=== PATIENT | female | born 1940 | race Caucasian/White ===

== ENCOUNTER 2023-11-18 15:48 | Outpatient (CLI) | payer MEDICARE, BC, SELFPAY | END 2023-11-18 15:49 | disposition home or self-care (01) | PROVIDERS: PCP Family Medicine; Visit Provider Family Medicine | DX: E78.5 Hyperlipidemia, unspecified (principal); E03.9 Hypothyroidism, unspecified; I10 Essential (primary) hypertension; R73.03 Prediabetes; M85.80 Other specified disorders of bone density and structure, unspecified site; I25.10 Atherosclerotic heart disease of native coronary artery without angina pectoris | CPT/HCPCS: 80053; 80061; 82306; 84443 ==

== ENCOUNTER 2024-06-05 13:59 | Outpatient (CLI) | payer MEDICARE, BC, SELFPAY ==
--- NOTE | 2024-06-05 14:00 | CRLHL7_ITS ---
For Patients: As a result of the Century Cures Act, medical imaging exams and procedure reports are released immediately into your electronic medical record. You may view this report before your referring provider. If you have questions, please contact your health care provider. INDICATION: bilateral screening mammogram, asymptomatic 84 y/o female COMPARISON: None TECHNIQUE: CC and MLO views were obtained. These mammographic images have been obtained using full-field digital technique. These mammographic images were interpreted with the benefit of computer aided detection and tomosynthesis. BREAST COMPOSITION: The breasts are heterogeneously dense, which may obscure small masses. FINDINGS: No suspicious findings. ASSESSMENT: BI-RADS 1 Negative RECOMMENDATION: Annual screening mammogram. A lay language report of this examination will be provided to the patient. Dictated by: Ney Randle MD @ 06/19/2024 13:08:49 (Electronically Signed)
== END 2024-06-05 14:00 | disposition home or self-care (01) ==
LOC: MAMMO 14:00
PROVIDERS: PCP Family Medicine; Visit Provider Obstetrics & Gynecology
DX: Z12.31 Encounter for screening mammogram for malignant neoplasm of breast (principal)
CPT/HCPCS: 77063; 77067

== ENCOUNTER 2024-08-18 15:52 | Emergency (ER) | payer MEDICARE, BC, SELFPAY ==
--- OUTSIDE RECORDS SUMMARY | 2021-04-14 08:25 | XMS_ITS | Continuity of Care Document ---
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 Phone Azeem Johnson MD Unavailable [...] VISIT CATARACT SURG W/IOL, 1 STAGE Oct [facility] Oct- OPHTHALMIC BIOMETRY Oct POSTOP FOLLOW-UP VISIT CATARACT SURG W/IOL, 1 STAGE Oct [facility] Oct- OFFICE/OUTPATIENT VISIT, EST Oct OPHTHALMIC BIOMETRY Oct No Charge EYE EXAM & TREATMENT REFRACTION TOBACCO NON-USER VISUAL FIELD EXAMINATION(S) EYE EXAM & TREATMENT REFRACTION PRESCRIPTION OF CONTACT LENS Tobacco-use domestic violence counselor 3-10 min EYE EXAM & TREATMENT [...] Diagnoses Date Provider Providers Copied on Encounter [facility], [address], [place], [place], [address], tel:[phone] [facility] follow-up (chief complaint) Secondary noninfectious iridocyclitis, left eye 2 Alex Azeem. [address], [place], [place], [address] . tel:[phone] [facility], [address], [facility] [place], [address], [place] tel:[phone] [facility] IOV (chief complaint) Presence of intraocular lens Francisco-2 2 Alex Gann. [address], [place], [place], [address] . tel: [phone] [facility] [place], [address] [place], [place], [address], [place] tel:[phone] [facility] post-op (chief complaint) Presence of intraocular lens Dec-0 1 Alex Gann. [address], [place], [place], [address] . tel: [phone] [facility] [place], [address] [place], [place], [address], [place] tel:[phone] [facility] post-op (chief complaint) Presence of intraocular lens Nov-0 1 Alex Gann. [address], [place], [place], [address] . tel: [phone] [facility] [place], [address] [place], [place], [address], [place] tel:[phone] [facility] post-op (chief complaint) Presence of intraocular lens Oct-2 1 Alex Gann. [address], [place], [place], [address] . tel: [phone] [facility] [place], [address] [place], [place], [address], [place] tel:[phone] [facility] No Information Oct-2 1 Alex Gann. [address], [place], [place], [address] . tel: [phone] [facility], [address] [place], [place], [address], [place] tel:[phone] [facility] post-op (chief complaint) Presence of intraocular lens Oct-1 1 Alex Gann. [address], [place], [place], [address] . tel: [phone] [facility], [address] [facility], [place], [place], [address], [place] tel:[phone] [facility] post-op (chief complaint) Presence of intraocular lens Oct-1 1 Alex Gann. [address], [place], [place], [address] . tel: [phone] [facility], [address] [place], [place], [address], [place] tel:[phone] [facility] No Information Oct-1 1 Alex Gann. [address], [place], [place], [address] . tel: [phone] OFFICE/OUTPAT IENT VISIT, EST [facility], [address] [place], [place], [address], [place] tel:[phone] [facility] medical eye exam (chief complaint)P re-op (chief complaint) Combined forms of age-related cataract, bilateral Oct-1 1 Alex Gann. [address], [place], [place], [address] . tel: [phone] [facility], [address] [place], [place], [address], [place] tel:[phone] [facility] medical eye exam (chief complaint) Combined forms of age-related cataract, bilateral Sep-2 0 Alex Gann. [address], [place], [place], [address] . tel: [phone] [facility], [address], [place], [place], [address], [place] tel:[phone] [facility] No Information Sep-2 -202 0 Agustina Brewster. [address], [place], [place], [address] . tel: [phone] [facility] [place], [address] [facility], [place], [place], [address], [place] [phone] [facility] No Information 3201 9 Alex Gann. [address], [place], [place], [address] . tel: [phone] [facility], [address] [place], [address], [place] tel:[phone] [facility] medical eye exam (chief complaint) Combined forms of age-related cataract, bilateral 201 9 Alex Gann. [address], [place], [place], [address] . tel: [phone] [facility] [place], [address] [place], [place], [address], [place] tel:-[phone] [facility] medical eye exam (chief complaint) Combined forms of age-related cataract, bilateral Apr- 2-201 8 Alex Gann. [address], [place], [place], [address] . tel: [phone] [facility] [place], [address] [place], [place], [address], [place] [phone] [facility] medical eye exam (chief complaint) Combined forms of age-related cataract, bilateral Apr-2 9-201 7 Alex Gann. [address], [place], [place], [address] . tel: [phone] [facility], [address] [place], [place], [address], [place] tel:[phone] [facility] No Information 201 5 Alex Gann. [address], [place], [place], [address] . tel: [phone] [facility], [address], [facility], [place], [place], [address], [place] tel:[phone] [facility] No Information 2 Alex Gann. [address] [facility], [place], [place], [address] . tel: [phone] Family History Family Member Type Diagnosis Age At Onset Mother Problem (finding) hypertension Father Problem (finding) glaucoma Payers Payer name Insurance type Covered green party ID Authoriza tion(s) Medicare MB [id number] [facility] [id number] Social History Type Description Quantity Date Captured [...] to Combined forms of age-related cataract, bilateral - Return in 1 year w francia Johnson M.D. for Complete Exam with Contacts. Related to Combined Cataract Combined Cataract OU - Discussed diagnosis in detail with patient. Surgery not indicated, will monitor. New glasses Rx was given today. Patient given new CLs today. Related to Combined Cataract Senile nuclear scler osis OU doing well - Surgery not indicated, will monitor. New glasses Rx was given today. Patient given new CLs today. Related to Senile nuclear sclerosis - Return in 1 year w francia Johnson M.D. for Complete Exam. Related to Senile nuclear sclerosis Assessments Type Assessment Date assessment Secondary noninfectious iridocyc litis, left eye impression Secondary noninfecti ous iridocyclitis, left eye: H20.042. post op iritis quiet Patient Care Teams Name Effective Dates (start - stop) Status Members No Information
--- OUTSIDE RECORDS SUMMARY | 2021-04-14 08:25 | XMS_ITS | Continuity of Care Document ---
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 Name Role Phone Azeem Johnson MD Unavailable [...] VISIT CATARACT SURG W/IOL, 1 STAGE Oct [facility] Oct- OPHTHALMIC BIOMETRY Oct POSTOP FOLLOW-UP VISIT CATARACT SURG W/IOL, 1 STAGE Oct [facility] Oct- OFFICE/OUTPATIENT VISIT, EST Oct OPHTHALMIC BIOMETRY Oct No Charge EYE EXAM & TREATMENT REFRACTION TOBACCO NON-USER VISUAL FIELD EXAMINATION(S) EYE EXAM & TREATMENT REFRACTION PRESCRIPTION OF CONTACT LENS 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 [address], [place], [place], [id number] . tel:[phone] [facility] MIRELA, [address], [facility] [place], [id number], [place] tel:[phone] [facility] IOV (chief complaint) Presence of intraocular lens Francisco-2 2 Alex Gann. [address], [place], [place], [id number] . tel: [phone] [facility] [place], [address] [place], [place], [address], [place] tel:[phone] [facility] post-op (chief complaint) Presence of intraocular lens Dec-0 1 Alex Gann. [address], [place], [place], [address] . tel: [phone] [facility] [place], [address] [place], [place], [id number], [place] tel:[phone] [facility] post-op (chief complaint) Presence of intraocular lens Nov-0 1 Alex Gann. [address], [place], [place], [id number] . tel: [phone] [facility] [place], [address] [place], [place], [address], [place] tel:[phone] [facility] post-op (chief complaint) Presence of intraocular lens Oct-2 1 Alex Gann. [address], [place], [place], [address] . tel: [phone] [facility], [address] [place], [address], [place] tel:[phone] [facility] No Information Oct-2 1 Alex Gann. [address], [place], [place], [address] . tel: [phone] [facility], [address] [place], [place], [id number], [place] tel:[phone] [facility] post-op (chief complaint) Presence of intraocular lens Oct-1 1 Alex Gann. [address], [place], [place], [address] . tel: [phone] [facility], [address] [facility], [place], [place], [id number], [place] tel:[phone] [facility] post-op (chief complaint) Presence of intraocular lens Oct-1 1 Alex Gann. [address], [place], [place], [address] . tel: [phone] [facility], [address] [place], [place], [address], [place] tel:[phone] [facility] No Information Oct-1 1 Alex Gann. [address], [place], [place], [address] . tel: [phone] OFFICE/OUTPAT IENT VISIT, EST [facility], [address] [place], [place], [id number], [place] tel:[phone] [facility] medical eye exam (chief complaint)P re-op (chief complaint) Combined forms of age-related cataract, bilateral Oct-1 1 Alex Gann. [address], [place], [place], [address] . tel: [phone] [facility], [address] [place], [place], [address], [place] tel:[phone] [facility] medical eye exam (chief complaint) Combined forms of age-related cataract, bilateral Sep-2 0 Alex Gann. [address], [place], [place], [address] . tel: [phone] [facility], [address], [place], [place], [address], [place] tel:[phone] [facility] No Information Sep-2 -202 0 Agustina Brewster. [address], [place], [place], [address] . tel: [phone] [facility] [place], [address] [facility], [place], [place], [id number], [place] [phone] [facility] No Information 3201 [address] Alex Gann. [address], [place], [place], [address] . tel: [phone] [facility], [address] [place], [address], [place] tel:[phone] [facility] medical eye exam (chief complaint) Combined forms of age-related cataract, bilateral 201 9 Alex Gann. [address], [place], [place], [address] . tel: [phone] [facility] [place], [address] [place], [address], [place] [phone] [facility] medical eye exam (chief complaint) Combined forms of age-related cataract, bilateral Apr- 2-201 8 Alex Gann. [address], [place], [place], [address] . tel: [phone] [facility] [place], [address] [place], [address], [place] [phone] [facility] medical eye exam (chief complaint) Combined forms of age-related cataract, bilateral Apr-2 9-201 7 Alex Gann. [address], [place], [place], [address] . tel: [phone] [facility], [address] [place], [address], [place] tel:[phone] [facility] No Information 201 5 Alex Gann. [address], [place], [place], [address] . tel: [phone] [facility], [address], [facility], [place], [place], [address], [place] tel:[phone] [facility] No Information 2 Alex Gann. [address] [facility], [place], [place], [address] . tel: [phone] Family History Family Member Type Diagnosis Age At Onset Mother Problem (finding) hypertension Father Problem (finding) glaucoma Payers Payer name Insurance type Covered constitution party ID Authoriza tion(s) Medicare MB [id number] [facility] [id number] Social History Type Description Quantity Date Captured [...]
--- OUTSIDE RECORDS SUMMARY | 2023-06-17 09:15 | XMS_ITS ---
Author Organization [facility] Address [address] [place] [address] Care Team Providers Care Shed Workers Supervisor Name Role Phone ISATUMILAGROSRAYNA Primary Care Provider ROSE Felder Unavailable [phone] Allergies No Known Allergies Medications Medication SIG (Take, Route, Frequency, Duration) Notes Start Date End Date Status BIOTIN 5000 mcg 1 tab(s) orally once a day Active ALBUTEROL (EQV-PROVENTIL HFA) 90 mcg/inh 2 puff(s) inhaled every 6 hours Active SYNTHROID 25 mcg (0.025 mg) 1 tab(s) orally once a day for 90 days Active AMLODIPINE 2.5 mg 2 orally once a day Active MINIVELLE 0.0375 mg/24 hours twice weekly 1 PATCH transdermally 2 times a week Active HYDROCHLOROTHIAZIDE-LOSART AN 25 mg-100 mg 1 tab(s) orally once a day Active CELEBREX 200 mg 1 cap(s) orally once a day Active FLUOXETINE 40 mg 1 cap(s) orally once a day Active METOPROLOL SUCCINATE ER 50 mg 1 tab(s) orally once a day A ctive ATORVASTATIN 40 mg 1 tab(s) orally once a day Active BREO ELLIPTA 200 mcg-25 mcg/inh 1 puff(s) inhaled once a day Active VASCEPA 1 g 2 cap(s) orally once a day Active VITAMIN B12 1000 mcg 1 tab(s) orally once a day Active ASPIRIN 81 mg 1 tab(s) orally once a day Active Social History Tobacco Use: Social History Observation Description Date Details (start date - stop date) Never Smoker NA - NA Alcohol Screen: Question Answer Notes Did you have a drink containig alcohol in the year: No Tobacco Use: Question Answer Notes Smoking Status: nonsmoker Vital Signs Blood pressure systolic 98 mm Hg 06/17/19 24 Blood pressure diastolic 60 mm Hg 024 Height 63.5 in 06/17/2023 Weight 113 lbs 06/17/2023 BMI 19.7 kg/m2 06/17/2023 Encounters Encounter Location Date Provider Diagnosis [facility] [place] [place] [address] [place] [address] 06/17/2023 ROSE POWERS Other specified hypothyroidism E03.8 Assessments Encounter Date Diagnosis (ICD Code) Assessment Notes Treat ment Notes Treatment Clinical Notes 06/17/2023 Other specified hypothyroidism (ICD-10 - E03.8) 06/17/2023 Other need tepezza as soon as possible 08/2022 OK to stop Tepezza to reduce risk of worsening hearing loss - has endocrine clearance. Advised to get Dr. Sales's clearance first. Restart Synthroid 25 mcg qd. Send to [facility]. Labs to be done here a week before. Case d/w Dr. Powers /11/2022 Continue Synthroid 25 mcg qd. Labs to be done here a week before. Case d/w Dr. Powers /03/2023 Continue Synthroid 25 mcg qd. Labs for TSH today only. Defer to Dr. Sales and GASTON regarding diplopia and hearing loss. Case d/w Dr. Powers /05/2023 Continue same dose. Agree with seeing Manager Database . Labs to be done at PCP, which she sees every 3 months. Order thyroid U/S to be done at [facility]. Case d/w Dr. Powers Plan Of Treatment Medication Medication Name Sig Start Date Stop Date Notes BIOTIN 5000 mcg 1 tab(s) orally once a day ALBUTEROL (EQV-PROVENTIL HFA ) 90 mcg/inh 2 puff(s) inhaled every 6 hours SYNTHROID 25 mcg (0.025 mg) 1 tab(s) ora lly once a day for 90 days AMLODIPINE 2.5 mg 2 orally once a day MINIVELLE 0.0375 mg/24 hours twice weekly 1 PATCH transdermally 2 times a week HYDROCHLOROTHIAZIDE-LOSARTAN 25 mg-100 mg 1 tab(s) orally once a day CELEBREX 200 mg 1 cap(s) orally once a day FLUOXETINE 40 mg 1 cap(s) orally once a day METOPROLOL SUCCINATE ER 50 mg 1 tab(s) orally once a day ATORVASTATIN 40 mg 1 tab(s) orally once a day BREO ELLIPTA 200 mcg-25 mcg/inh 1 puff(s) inhaled once a day VASCEPA 1 g 2 cap(s) orally once a day VITAMIN B12 1000 mcg 1 tab(s) orally once a day Treatment Notes Assessment Notes Other need tepezza as soon as possible /08/2022 OK to stop Tepezza to reduce risk of worsening hearing loss - has endocrine clearance. Advised to get Dr. Sales's clearance first. Restart Synthroid 25 mcg qd. Send to [facility]. Labs to be done here a week before. Case d/w Dr. Powers /11/2022 Continue Synthroid 25 mcg qd. Labs to be done here a week before. Case d/w Dr. Powers /03/2023 Continue Synthroid 25 mcg qd. Labs for TSH today only. Defer to Dr. Sales and GASTON regarding diplopia and hearing loss. Case d/w Dr. Powers /05/2023 Continue same dose. Agree with seeing Manager Database. Labs to be done at PCP, which she sees every 3 months. Order thyroid U/S to be done at [facility]. Case d/w Dr. Powers Pending Test Test Name Order Date TSH, 3RD GENERATION 06/17/2023 Next Appt Details Follow Up: 3 months, Reason: Progress Notes * Vania PEREZOB:1940 (83 yo F)Acc No.[id number]:06/17/2023 Patient: Litzy BAUM Provider: Jb Powers M.D. :1940 A ge:83 Y S ex:Female Date:06/17/2023 Address:[address] [place] [address] Pcp:RAYNA KRISHNA Subjective: * Chief Complaints: * * HPI: S ocial History: Last eye exam: P oints: 0 , I nterpretation: N egative. H yperthyroidism: The patient was diagnosed d x hypothyroid age 58 , was on synthroid, . T he symptoms consistent with hyperthyroidism are p cp had to decrease dose several times in the last year , , dr krishna, actualliy had to d c , thyroid meds altogether, tsh 0.16 on levothy 25, then 2.26 in january off meds,, pt had proptosis, of left eye and double vision , saw dr morton tsh 0.76 tsi 429 08/2022 Pt has had [address] Morton said exopthalamos has improved. Pt concerned about hearing loss worsening if continues. 11/2022 Reviewed labs. She is still having hearing loss, but has yet to see ENT as she is currently working with a vascular surgeon for PVD. 03/2023 6 mos post Tepezza treatment, will have an upcoming appt with ENT. Hearing has not improved. 05/2023 Reviewed labs. She has still not recovered from hearing. Might see an open hearth worker as she cannot afford hearing aids.. W ith respect to fertility the patient?pt post men. T he last TSH was performed 01/2022 2 .26 11/2022 TSH 4.2, Free T4 1.2, Free T3 3.0 03/2023 TSH 1.1 05/2023 TSH 1.83, 5.7%. T he treatment regimen S ynthroid 25 mcg qdBRAND only. S binh effects of the medications include n one. C ompliance with the medical regimen has been g ood. * ROS: G eneral: Loss of appetite n o. W eight loss y es. W eight gain n o. F atigue y es. I nsomnia y es. E ndocrinology: Sensitive to cold temperature n o. S ensitive to hot temperature y es. i ncrease appettite y es. S weats y es. * Medical History: A shtma, Hld, Hypothryoid, Htn. * Surgical History: b ilat tka , lami , rt shluder , bladder prolacpse , t a . * Hospitalization/Major Diagno stic Procedure: D enies Past Hospitalization. * Family History: F ather: , parkinsons. M other: , obs. M aternal Grand Father: unknown, diagnosed with Diabetes. 1 son(s) , 1 daughter(s) - healthy. . dtr cad. * Social History: T obacco Use S moking Status: n onsmoker. A lcohol Screen D id you have a drink containig alcohol in the past year: N o. * Medications: T aking Vitamin B12 1000 mcg tablet 1 tab(s) orally once a day , Taking Breo Ellipta 200 mcg-25 mcg/inh powder 1 puff(s) inhaled once a day , Taking atorvastatin 40 mg tablet 1 tab(s) orally once a day , Taking Metoprolol Succinate ER 50 mg tablet, extended release 1 tab(s) orally once a day , Taking FLUoxetine 40 mg capsule 1 cap(s) orally once a day , Taking CeleBREX 200 mg capsule 1 cap(s) orally once a day , Taking hydrochlorothiazide-losartan 25 mg-100 mg tablet 1 tab(s) orally once a day , Taking Synthroid 25 mcg (0.025 mg) tablet 1 tab(s) orally once a day , Taking aspirin 81 mg delayed release tablet 1 tab(s) orally once a day , Taking Albuterol (Eqv-Proventil HFA) 90 mcg/inh aerosol 2 puff(s) inhaled every 6 hours , Taking biotin 5000 mcg tablet, disintegrating 1 tab(s) orally once a day , Taking Minivelle 0.0375 mg/24 hours twice weekly film, extended release 1 PATCH transdermally 2 times a week , Taking amLODIPine 2.5 mg tablet 2 orally once a day , Taking Vascepa 1 g capsule 2 cap(s) orally once a day , Medication List reviewed and reconciled with the patient * Allergies: N .K.D.A. Objective: * Vitals: W t: 113, Ht: 63.5, BMI:19.7, BP:98/60, HR: 72. * Examination: G eneral examination: e yes, 100 rt 20 mm left 25 mm. * Physical Examination: G eneral: General appearence w ell nourished, pleasant, NAD. N tian: Neck s upple. T hyroid n ot enlarged. H eart: Rhythm r egular. H eart sounds n ormal. C hest: Breath sounds n ormal. Assessment: * Assessment: 1. O ther specified hypothyroidism - E03.8 (Primary) long h o hypothyroidism, now with euthyroid graves dz, with exopthalmos os, with sx, left eye proptitic with some erythrema and diplopia /08/2022 exopthalmos improved, hearing loss SE from tepezza, elevated TSH /11/2022 TFTs improved, continuous hearing loss /03/2023 6 mos post tepezza treatment (stopped two infusions prior to completion), continuous hearing loss, diplopia without prism glasses, free t4 normal /05/2023 tsh ok, continuous hearing loss from tepezza treatment. Plan: * Treatment: 2. O thers Continue Vitamin B12 tablet, 1000 mcg, 1 tab(s), orally, once a day; C ontinue Breo Ellipta powder, 200 mcg-25 mcg/inh, 1 puff(s), inhaled, once a day; C ontinue atorvastatin tablet, 40 mg, 1 tab(s), orally, once a day; C ontinue Metoprolol Succinate ER tablet, extended release, 50 mg, 1 tab(s), orally, once a day; C ontinue FLUoxetine capsule, 40 mg, 1 cap(s), orally, once a day; Continue CeleBREX capsule, 200 mg, 1 cap(s), orally, once a day; C ontinue hydrochlorothiazide-losartan tablet, 25 mg-100 mg, 1 tab(s), orally, once a day; S tart Synthroid tablet, 25 mcg (0.025 mg), 1 tab(s), orally, once a day, 90 days, 90 Tablet, Refills 3; C ontinue Albuterol (Eqv-Proventil HFA) aerosol, 90 mcg/inh, 2 puff(s), inhaled, every 6 hours; C ontinue biotin tablet, disintegrating, 5000 mcg, 1 tab(s), orally, once a day; C ontinue Minivelle film, extended release, 0.0375 mg/24 hours twice weekly, 1 PATCH, transdermally, 2 times a week; C ontinue amLODIPine tablet, 2.5 mg, 2, orally, once a day; C ontinue Vascepa capsule, 1 g, 2 cap(s), orally, once a day. Notes: need tepezza as soon as possible 08/2022 OK to stop Tepezza to reduce risk of worsening hearing loss - has endocrine clearance. Advised to get Dr. Sales's clearance first. Restart Synthroid 25 mcg qd. Send to [facility]. Labs to be done here a week before. Case d/w Dr. Powers /11/2022 Continue Synthroid 25 mcg qd. Labs to be done here a week before. Case d/w Dr. Powers /03/2023 Continue Synthroid 25 mcg qd. Labs for TSH today only. Defer to Dr. Sales and GASTON regarding diplopia and hearing loss. Case d/w Dr. Powers /05/2023 Continue same dose. Agree with seeing Manager Database. Labs to be done at PCP, which she sees every 3 months . Order thyroid U/S to be done at [facility]. Case d/w Dr. Powers * Procedure Codes: G 8510 NEG SCR D PT NOT ELIG F/U/PLN DOC * Preventive Medicine: Counseling: V itamin D 1 000 IU daily. Screening / Special Tests: F all Risk Screening: S creening: N o falls in the past year, A ssessment: P erformed, P keo of Care: D ocumented. * Follow Up: 3 months * Images: * Sign off status: Completed true * Provider: Jb Powers M.D. Date: 0 06/17/2023 Generated for Vilma prajapati/Sabina/Staceyitting on: 0 08/18/2024 04:54 PM EDT History and Physical Notes * HPI (History of Present Illness) Category Sub-Category Detail Notes Social History Last eye exam: Points:: 0 Interpretation:: Negative Hyperthyroidism The symptoms consist ent with hyperthyroidism are pcp had to decrease dose several times in the last year , , dr krishna, actualliy had to d c , thyroid meds altogether, tsh 0.16 on levothy 25, then 2.26 in january off meds,, pt had proptosis, of left eye and double vision , saw dr morton tsh 0.76 tsi 429 08/2022 Pt has had [address] Morton said exopthalamos has improved. Pt concerned about hearing loss worsening if continues. 11/2022 Reviewed labs. She is still having hearing loss, but has yet to see ENT as she is currently working with a vascular surgeon for PVD. 03/2023 6 mos post Tepezza treatment, will have an upcoming appt with ENT. Hearing has not improved. 05/2023 Reviewed labs. She has still not recovered from hearing. Might see an open hearth worker as she cannot afford hearing aids. The treatment regimen Synthroid 25 mcg q d BRAND only With respect to fertility the patient pt post men Side effects of the medications include none Compliance with the medical regimen has been good The last TSH was performed 01/2022 2.26 11/2022 TSH 4.2, Free T4 1.2, Free T3 3.0 03/2023 TSH 1.1 05/2023 TSH 1.83, 5.7% The patient was diagnosed dx hypothyroid age 58 , was on synthroid, Physical Examination Category Sub-Category Detail Notes Neck Neck supple Thyroid not enlarged Chest Breath sounds normal Wheezes Heart Rhythm regular Heart sounds normal General General appearence well nourishe d, pleasant, NAD
--- OUTSIDE RECORDS SUMMARY | 2023-07-23 10:30 | XMS_ITS ---
Author Organization [facility] Address [address] [place] [address] Care Team Providers Care Sales Representative Printing Paper Name Role Phone Antoine PRICE, [facility] Primary Care Provider Unavail Isabella Arevalo Unavailable [phone] Maximino Haq Unavailable [phone] REASON FOR VISIT f/u carotid results Encounters Encounter Location Date Provider Diagnosis [facility] [address] [place] [address] 07/23/2023 Maximino Haq Abnormal ECG R94.31 ; Atherosclerosis of coronary artery of [place] heart without angina pectoris, unspecified vessel or lesion type I25.10 ; Abnormal cardiovascular stress test R94.39 ; Dyspnea on exertion R06.09 and Venous insufficiency I87.2 Assessments Encounter Date Diagnosis (ICD Code) Assessment Notes Treatment Notes Treatment Clinical Notes Section Notes 07/23/2023 Abnormal ECG (ICD-10 - R94.31) 07/23/2023 Atherosclerosis of coronary artery of [place] heart without angina pectoris, unspecified vessel or lesion type (ICD-10 - I25.10) 07/23/2023 Abnormal cardiovascular stress test (ICD-10 - R94.39) 07/23/2023 Dyspnea on exertion (ICD-10 - R06.09) 07/23/2023 Venous insufficiency (ICD-10 - I87.2) Plan Of Treatment No Information Progress Notes * Vania PEREZOB:1940 (84 yo F)Acc No.[id number]:07/23/2023 Progress Notes Patient: Litzy BAUM Provider: Iglesia Haq DO :1940 A ge:83 Y S ex:Female Date:07/23/2023 Address:[address] [place] [address] [place], [facility] Pcp:Kaushal Schultz MD Subjective: * Chief Complaints: * 1 . F/u carotid results. * HPI: H istory/Subjective: The patient is [...] lower extremity edema with varicose veins. * Medical History: Objective: * Vitals: * Examination: G eneral Examination: GENERAL APPEARANCE: [...] 1. A therosclerosis of coronary artery of [place] heart without angina pectoris, unspecified vessel or lesion type - I25.10 (Primary) 2 . A bnormal ECG - R94.31 ?3. A bnormal cardiovascular stress test - R94.39 4 . D yspnea on exertion - R06.09 5 . V enous insufficiency - I87.2 Plan: * Treatment: * * Electronic signature of Maximino Haq , DO on 08/18/2024 at 04:54 PM EDT Sign off status: Pending * Provider: Iglesia Haq, DO Date: 0 07/23/2023 Generated for Vilma prajapati/Sabina/Staceyitting on: 0 08/18/2024 [...]
--- OUTSIDE RECORDS SUMMARY | 2023-07-28 08:00 | XMS_ITS ---
Author Organization [facility] Address [address] [address] Care Team Providers Care Warp Knit Operator Name Role Phone Antoine PRICE, Kaushal Primary Care Provider Unavail Isabella Arevalo [phone] REASON FOR VISIT VENOUS REFLUX DX: VENOUS INSUFFICIENT Encounters Encounter Location Date Provider Diagnosis [facility] [address] [address] 07/28/2023 Isabella Damon Venous insufficiency I87.2 Assessments Encounter Date Diagnosis (ICD Code) Assessment Notes Treatment Notes Treatment Clinical Notes Section Notes 07/28/2023 Venous insufficiency (ICD-10 - I87.2) Plan Of Treatment No Information Progress Notes * Fozia FALLONLewisOB:1940 (84 yo F)Acc No.[id number]:07/28/2023 Progress Note Patient: Litzy BAUM Provider: Iglesia Damon M.D. :1940 A ge:83 Y S ex:Female Date:07/28/2023 Address:[facility] [address] Pcp:Kaushal Schultz MD Subjective: * Chief Complaints: * 1 . VENOUS REFLUX DX: VENOUS INSUFFICIENT. * Medical History: Objective: * Vitals: Assessment: * Assessment: 1. V enous insufficiency - I87.2 (Primary) Plan: * Treatment: * Procedure Codes: 9 3970 EXTREMITY STUDY * * Electronic signature of Isabella Damon MD on 08/18/2024 at 04:54 PM EDT Sign off status: Pending * Provider: Iglesia Damon M.D. Date: 0 07/28/2023 Generated for Vilma prajapati/Sabina/Beti on: 0 08/18/2024 04:54 PM EDT
--- OUTSIDE RECORDS SUMMARY | 2023-08-03 10:00 | XMS_ITS ---
Author Organization [facility] Address [address] [facility] e [address] [place] [address] Care Team Providers Care Catch Basin Cleaner Name Role Phone Antoine PRICE, Rosalespolly Primary Care Provider Unavail able Isabella Damon Unavailable [phone] Maximino Haq Unavailable [phone] REASON FOR VISIT 1 month f/u test results Medications Medication SIG (Take, Route, Frequency, Duration) Notes Start Date End Date Status Andrei-Mag Active Culturelle - as directed Orally Active Lipitor 40 MG 1 tablet Orally Once a day for 90 days Active Aspirin 81 MG 1 tablet Orally twic e a week Active Biotin 5000 MCG 1 tablet Orally Once a day for 30 day(s) Active Multivitamin - 1 tablet Orally Once a day for 30 day(s) Active Breo Ellipta 200-25 MCG/ACT 1 puff Inhalation Once a day Active Albuterol Sulfate HFA 108 (90 Base) MCG/ACT 1 puff as needed Inhalation every 4 hrs as needed Active Vitamin D3 50 MCG (2000 UT) 1 capsule Orally Once a day for 30 day(s) Active Vitamin B12 1000 MCG 1 tablet Orally Onc e a day for 30 day(s) Active amLODIPine Besylate 2.5 MG 1 tablet Orally twice a day Active CeleBREX 200 MG 1 capsule with food Orally Once a day for 30 day(s) Active Vascepa 1 GM 2 capsules with meal s Orally Twice a day for 30 day(s) Active FLUoxetine HCl 40 MG 1 capsule Orally On ce a day for 30 day(s) Active Minivelle 0.0375 MG/24HR 1 patch to skin Transdermal Two times a Week for 30 day(s) Active Metoprolol Succinate ER 50 MG 1 tablet Orally Once a day for 30 day(s) Active Problems Problem Type SNOMED Code ICD Code Onset Dates Problem Status W/U Status Risk Notes Problem Hyperlipidem ia, mixed (E78.2) Active confirmed Vital Signs Temperature [...] Provider Diagnosis [facility] [address] [address] [address] 08/03/2023 Maximino Haq Abnormal ECG R94.31 ; Atherosclerosis of coronary artery of [place] heart without angina pectoris, unspecified vessel or lesion type I25.10 ; Abnormal cardiovascular stress test R94.39 ; Dyspnea on exertion R06.09 ; Venous insufficiency I87.2 and Hyperlipidemia, mixed E78.2 Assessments Encounter Date Diagnosis (ICD Code) Assessment Notes Treatment Notes Treatment Clinical Notes Section Notes 08/03/2023 Abnormal ECG (ICD-10 - R94.31) 08/03/2023 Atherosclerosis of coronary artery of nikolai heart without angina pectoris, unspecified vessel or [...] visit to further assess her cholesterol panel. Progress Notes * Fozia PEREZneDOB:1940 (84 yo F)Acc No.[id number]:08/03/2023 Progress Notes Patient: Litzy BAUM Provider: Iglesia Haq DO :1940 A ge:83 Y S ex:Female Date:08/03/2023 Address:[address] [place], [place] [id number] Pcp:Kaushal Schultz MD Subjective: * Chief Complaints: * 1 . 1 month f/u test results. * HPI: H istory/Subjective: The patient [...] are well controlled at this time. * Medical History: * Medications: T aking Metoprolol Succinate ER 50 MG Tablet Extended Release 24 Hour 1 tablet Orally Once a day , Taking Minivelle 0.0375 MG/24HR Patch Twice Weekly 1 patch to skin Transdermal Two times a Week , Taking amLODIPine Besylate 2.5 MG Tablet 1 tablet Orally twice a day , Taking CeleBREX 200 MG Capsule 1 capsule with food Orally Once a day , Taking Vascepa 1 GM Capsule 2 capsules with meals Orally Twice a day , Taking FLUoxetine HCl 40 MG Capsule 1 capsule Orally Once a day , Taking Breo Ellipta 200-25 MCG/ACT Aerosol Powder Breath Activated 1 puff Inhalation Once a day , Taking Albuterol Sulfate HFA 108 (90 Base) MCG/ACT Aerosol Solution 1 puff as needed Inhalation every 4 hrs , Notes to Pharmacist: as needed, Taking Multivitamin - Tablet 1 tablet Orally Once a day , Taking Vitamin D3 50 MCG (2000 UT) Capsule 1 capsule Orally Once a day , Taking Vitamin B12 1000 MCG Tablet Extended Release 1 tablet Orally Once a day , Taking Aspirin 81 MG Tablet Chewable 1 tablet Orally twice a week , Taking Biotin 5000 MCG Tablet 1 tablet Orally Once a day , Taking Andrei-Mag , Taking Culturelle - Capsule as directed Orally , Taking Lipitor 40 MG Tablet 1 tablet Orally Once a day , Medication List reviewed and [...] 1. A therosclerosis of coronary artery of nikolai heart without angina pectoris, unspecified vessel or lesion type - I25.10 (Primary) 2 . A bnormal ECG - R94.31 ?3. A bnormal cardiovascular stress test - R94.39 4 . D yspnea on exertion - R06.09 5 . V enous insufficiency - I87.2 6 . H yperlipidemia, mixed - E78.2 Plan: * Treatment: * * Electronic signature of Maximino Haq DO on 08/18/2024 at 04:55 PM EDT Sign off status: Pending * Provider: Iglesia Haq DO Date: 0 08/03/2023 Generated for Vilma prajapati/Faxing/eTransmitting on: 0 08/18/2024 04:55 PM EDT History and Physical Notes * [...] General Examination GENERAL APPEARANCE: in no ac alturas distress, well developed, well nourished , in [...]
--- OUTSIDE RECORDS SUMMARY | 2023-09-09 09:15 | XMS_ITS ---
Author Organization [facility] [place] Address [address] [place] [address] Care Team Providers Care Sulfate Drier Machine Operator Name Role Phone RAYNA KRISHNA Primary Care Provider ROSE Felder Unavailable [phone] Encounters Encounter Location Date Provider [place] [facility] [place] [place] [address] [place] [address] 09/09/2023 ROSE POWERS Plan Of Treatment No Information Progress Notes * Fozia FALLONLewisOB:1940 (84 yo F)Acc No.[id number]:09/09/2023 Patient: Litzy BAUM Provider: Jb Powers M.D. :1940 A ge:83 Y S ex:Female Date:09/09/2023 Address:[address] [place] [address] Ave, [address] [place], [place] [id number] Pcp:RAYNA KRISHNA Subjective: * Chief Complaints: * * Medical History: Objective: * Vitals: Assessment: Plan: * Treatment: * Images: * Electronic signature of ASH POWERS MD on 08/18/2024 at 04:55 PM EDT Sign off status: Pending * Provider: Jb Powers M.D. Date: 0 09/09/2023 Generated for Vilma prajapati/Sabina/Luissmitting on: 0 08/18/2024 04:55 PM EDT
--- OUTSIDE RECORDS SUMMARY | 2024-04-22 16:00 | XMS_ITS ---
Author Organization [facility] [place] Address [address] [place] [address] Care Team Providers Care Chief Steward/Stewardess Name Role Phone ISATURAYNA LINARES Primary Care Provider UnavailROSE Carlson Unavailable [phone] Migration, Provider Unavailable Unavailable [facility] VISIT [facility] Encounter Medications Medication SIG (Take, Route, [...] review and pick correct strength-formulati on from Heidi Shaulis options. If intended option is not shown, discontinue and re-order from Quick Search* Active amLODIPine Besylate 2.5 MG 2 orally once a day Active Encounters Encounter Location Date Provider [place] [facility] [place] [address] [place] [address] 04/22/2024 Provider Migration Plan Of Treatment Medication [...] *Please review and pick correct strength-formulation from Heidi Shaulis options. If intended option is not shown, [...] *Please review and pick correct strength-formulation from Heidi Shaulis options. If intended option is not shown, discontinue and re-order from Quick Search* amLODIPine Besylate 2.5 MG 2 orally once a day Progress Notes * Vania PEREZOB:1940 (84 yo F)Acc No.[id number]:04/22/2024 Patient: Litzy BAUM Provider: :1940 A ge:84 Y S ex:Female Date:04/22/2024 Address:[address] [place] [address], [address] [place], [place] [id number] Pcp:RAYNA KRISHNA Subjective: * Chief Complaints: * 1 . [facility] To [facility] Conversion Encounter. * Medical History: * Medications: T aking Aspirin 81 MG Tablet Delayed Release 1 tab(s) orally once a day Objective: * Vitals: Assessment: Plan: * Treatment: * Images: * Electronic signature of Prov ider Migration on 08/18/2024 at 04:55 PM EDT Sign off status: Pending * Provider: Date: 0 04/22/2024 Generated for Vilma prajapati/Sabina/Beti on: 0 08/18/2024 04:55 PM EDT
--- OUTSIDE RECORDS SUMMARY | 2024-08-18 14:20 | XMS_ITS | Encounter Summary ---
Author Organization [facility] Address [address] [place] [address] Care Team Providers Care Senior Maintenance Mechanic Name Role Phone Elsewhere, Pcp Primary Care Provider Unavailabl e Reason for Referral * Outpatient (Routine) - Authorized Specialty Diagnoses / Procedures Referred By Scar t Referred To Contact Physical Therapy Diagnoses Pain Low Back Unspecified Halie Cope M.D. [address] [place] [phone] Phone: tel: fax: Referral ID Status Reason Start Date Expiration Date V isits Requested Visits Authorized [id number] Authorized 08/18/2024 02/17/2026 1 1 * Outpatient (Routine) - Authorized Specialty Diagnoses / Procedures Referred By Scar gold Referred To Contact Diagnoses Pain Leg Right Procedures US Lower Extremity Veins Right Halie Cope M.D. [address] [place] [address] Phone: tel: fax: [facility] Region Referral ID Status Reason Start Date Expiration Date V isits Requested Visits Authorized [id number] Authorized 08/18/2024 11/18/2025 1 1 Reason for Visit * Reason Comments Other Right leg pain that starts at the knee and goes down into the foot. * Appointment Request (Routine) - Closed Specialty Diagnoses / Procedures Referred By Scar t Referred To Contact Family Medicine Referral ID Status Reason Start Date Expiration Date Visits Re quested Visits Authorized [id number] Closed 08/17/2024 11/17/2025 1 1 Encounter Details Date Type Department Care Team (Late st Contact Info) Description 08/18/2024 2:20 PM CDT Office Visit Department of Family Medicine, [facility], in [place], [place] [address] [facility] [place] [phone] Halie Cope M.D. [address] [place] [address] Pain Leg Right (Primary Dx); Pain Low Back Unspecified Social History Tobacco Use Types Packs/Day Years Used Date Smoking Tobacco: Former Cigarettes 0.3 40 0 03/01/1955 - 03/01/1995 Smokeless Tobacco: Never Tobacco Cessation:Counseling Given: Not Answered Alcohol Use Standard Drinks/Week Comments Yes 2 (1 standard drink = 0.6 oz pure alcohol) I am just a social drinker and never drank too much as my of 67 years was a heavy drinker. [facility] Utilities Answer Date Recorded In the past 12 months has th [employer], gas, oil, or water [employer] threatened to shut off services in your home? No 08/18/2024 Hunger Vital Sign Answer Date Recorded Within the past 12 months, y ou worried that your food would run out before you got the money to buy more. Never true 08/19/19 25 Within the past 12 months, t he food you bought just didn't last and you didn't have money to get more. Never true 08/18/2024 PRAPARE - Transportation Answer Date Re corded Lack of Transportation (Medical) Not on file 08/18/2024 In the past 12 months, has l ack of transportation kept you from meetings, work, or from getting things needed for daily living? No 08/18/2024 Housing Stability Answer Date Recorded What is your living situation today? 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[employer] Gender Identity Female 08/18/2024 12:20 PM CDT Sexual Orientation Straight 08/18/2024 12 :20 PM CDT documented as of this encounter Last Filed Vital Signs Vital Sign Reading Time Taken Comments Blood Pressure 107/62 08/18/2024 2:35 PM CDT Pulse 62 08/18/2024 2:35 PM CDT Temperature 35.8 C (96.4 F) 08/18/2024 2:35 PM CDT Respiratory Rate 16 08/18/2024 2:35 PM CDT Oxygen Saturation - - Inhaled Oxygen Concentration - - Weight 53.6 kg (118 lb 2.7 oz) 08/18/2024 2:35 P M CDT Height - - Body Mass Index 21.47 06/09/2024 12:53 PM CDT documented in this encounter Plan of Treatment Scheduled Orders Name Type Priority Associated Diagnoses Orde r Schedule US Lower Extremity Veins Right Imaging RAD - Routine (most inpatients and all outpatients) Pain Leg Right Expected: 08/18/2024, Expires: 11/18/2025 documented as of this encounter Visit Diagnoses Diagnosis Pain Leg Right- Primary Pain Low Back Unspecified documented in this encounter Care Teams Senior Maintenance Mechanic Relationship Specialty Start Date End Date Elsewhere, Pcp PCP - General Internal Medicine 06/09/24 documented as of this encounter
--- OUTSIDE RECORDS SUMMARY | 2024-08-18 15:54 | XMS_ITS | Clinical Summary ---
Author Organization [facility] Address [address] [place] [address] Care Team Providers Care Engine Dispatcher Name Role Phone Elsewhere, Pcp Primary Care Provider Unavailabl e Source Comments Patient records contain information from all sites at [facility]. For routine questions regarding patient records, call [phone] during business hours, M-F 8:00 AM - 5:00 PM Central Time. Record requests for emergency care only can be directed to [phone] at any time.[facility] Allergies No known active allergies Medications albuterol 90 mcg/actuation inhaler Inhale. 01/18/20 24 Active benzonatate (Tessalon) 200 mg capsule TAKE 1 CAPSULE BY MOUTH TWICE A DAY NEEDED FOR COUGH Active cholecalcifero l, vitamin D3, 25 mcg (1,000 Unit) tablet Take 1,000 Units by mouth. Active cyanocobalamin (Vitamin B-12) 500 mcg tablet Take 500 mcg by mouth. Active Minivelle 0.0375 mg/24 hr patch Apply 1 patch twice a week by transdermal route. Active fluticasone furoate-vilant Yocasta (Breo Ellipta) 200-25 mcg/act inhaler Inhale 1 puff daily. 01/18/20 24 Active Vascepa 1 gram capsule capsule TAKE ONE CAPSULE BY MOUTH TWICE A DAY WITH A MEAL Active traZODone (DesyreL) 50 mg tablet TAKE 1/2 TABLET BY MOUTH EVERY DAY AT BEDTIME NEEDED FOR INSOMNIA 04/16/19 25 Active atorvastatin (Lipitor) 40 mg tablet Take 1 tablet (40 mg total) by mouth daily. 90 tablet 3 06/10/19 25 Active albuterol 2.5 mg/0.5 mL nebulizer solution INHALE 0.5 ML (1 VIAL) BY NEBULIZATION EVERY 4 HOURS NEEDED FOR WHEEZING OR SHORTNESS OF BREATH. 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 3 mL 11 07/06/19 25 Active levothyroxine 25 mcg tablet Take 1 tablet (25 mcg total) by mouth daily before morning meal. 30 tablet 07/13/19 25 Active celecoxib (CeleBREX) 200 mg capsule Take 1 capsule (200 mg total) by mouth daily as needed for pain. 90 capsule 3 08/11/19 25 Active aspirin [address] tablet TAKE ONE TABLET BY MOUTH ONE TIME DAILY 90 tablet 1 08/18/19 25 Active Additional Information Patient taking differently:81 mg oral Daily,Taking 3 times a week, Reported on 08/18/[address] tablet Take 1 tablet by mouth 2 (two) times a week. 2024 Discontinued celecoxib (CeleBREX) 200 mg capsule Take 200 mg by mouth daily as needed for pain. 2024 Discontinued(R eorder) Encounters Date Type Department Care Team Description 08/18/2024 2:20 PM CDT Office Visit Department of Family Medicine, [facility], in [address] [phone] Halie Cope M.D. Pain Leg Right (Primary Dx); Pain Low Back Unspecified 08/14/2024 Refill Department of Family Medicine, [facility], in [address] [place] [address] Halie Cope M.D. Med Refill 08/10/2024 Refill Department of Family [facility], [facility], in [address] [address] Halie Cope M.D. Med Refill 07/07/2024 Refill Department of Family [facility], [facility], in [address] [address] Halie Cope M.D. Med Change Request 07/05/2024 Orders Only Department of Family Medicine, [facility], in [address] [address] Ed Waddell P.A.-C. 07/04/2024 Refill Department of Family [facility], [facility], in [address] [address] Halie Cope M.D. Med Refill 06/29/2024 Refill Department of [facility], in [address] [address] Ed Waddell P.A.-C. Med Change Request 06/29/2024 Refill Department of Family [facility], in [address] [address] Halie Cope M.D. Med Refill 06/20/2024 Clinical Communication Department of Ophthalmology in [place], [place] [address] [place] [address] Provider, Unknown 06/19/2024 Refill Department of [facility], [facility], in [address] [address] Halie Cope M.D. Med Change Request 06/19/2024 Results Follow-Up Department of Family Medicine, [facility], in [place], [place] [address] [place] [address] Danielle Lau L.P.N. Lipid Panel, Basic Metabolic Panel, Glucose, Fasting, Additional followed-up results: 3 06/19/2024 Orders Only Department of Family Medicine, [facility], in [place], [place] [address] [place] [address] Halie Cope M.D. Pain Low Back Unspecified (Primary Dx) 06/15/2024 Refill Department of Family Medicine, [facility], in [place], [place] [address] [place] [address] Halie Cope M.D. Med Change Request 06/15/2024 [facility] [address] [place] [address] Lucy Szymanski M.D. 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 Hyperlipidemia; Hypertension Essential Primary; Maintenance Health Adult; Hypothyroidism Discharge Disposition: Home or Self Care 06/12/2024 Refill Department of Family Medicine, [facility], in [address] [address] Halie Cope M.D. Med Change Request 06/09/2024 1:00 PM CDT Comprehensive Visit Department of Family Medicine, [facility], in [address] [address] Halie Cope M.D. Hyperlipidemia (Primary Dx); Hypertension Essential Primary; Hypothyroidism; Maintenance Health Adult; Asthma Mild Persistent (HCC); Insomnia; Depressive Disorder; Graves' Exophthalmos Ophthalmoplegic; Insufficiency Venous; Incontinence Urinary; Arthritis; Deficiency Estrogen Post Menopausal 06/09/2024 Refill Department of Family Medicine, [facility], in [place], [place] [address] [place] [phone] Halie Cope M.D. Med Change Request 05/31/2024 [facility] [address] [place] [address] Lucy Szymanski M.D. 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) from Last 3 Months Immunizations Immunization Administration Dates Next Due Influenza, Seasonal, Injectable 12/11/2010 Influenza, Unspecified 12/11/2010 influenza trivalent high dos e (HD)(PF) 11/18/2023,11/30/2017,11/19/2016,2016,12/13/2014,12/12/2013,12/12/2013 Family History Medical History Relation Name Comments Parkinson disease Father Alzheimer's disease Mother Polio Mother TB - Pulmonary tuberculosis Mother Relation Name Status Comments Father Mother Social History Tobacco Use Types Packs/Day Years Used Date Smoking Tobacco: Former Cigarettes 0.3 40 0 03/01/1955 - 03/01/1995 Smokeless Tobacco: Never Tobacco Cessation:Counseling Given: Not Answered Alcohol Use Standard Drinks/Week Comments Yes 2 (1 standard drink = 0.6 oz pure alcohol) I am just a social drinker and never drank too much as my of 67 years was a heavy drinker. [facility] Utilities Answer Date Recorded In the past 12 months has th e [employer], gas, oil, or water [employer] threatened to shut off services in your [...] your living situation today? 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 Gender Identity Female 08/18/2024 12:20 PM CDT Sexual Orientation Straight 08/18/2024 12 :20 PM CDT Last Filed Vital Signs Vital Sign Reading Time Taken Comments Blood Pressure 107/62 08/18/2024 2:35 PM CDT Pulse 62 08/18/2024 2:35 PM CDT Temperature 35.8 C (96.4 F) 08/18/2024 2:35 PM CDT Respiratory Rate 16 08/18/2024 2:35 PM CDT Oxygen Saturation - - Inhaled Oxygen Concentration - - Weight 53.6 kg (118 lb 2.7 oz) 08/18/2024 2:35 P M CDT Height 158 cm (5' 2.21) 06/09/2024 12:53 PM CDT Body Mass Index 21.47 06/09/2024 12:53 PM CDT Plan of Treatment Health Maintenance Due Date Last Done Comments DTaP,Tdap,and Td Vaccines (1 - Tdap) 1959 Pneumococcal vaccine (50+ years) (1 of 1 - PCV) 02/29/1988 Zoster Vaccines (1 of 2) 02/29/1988 RSV vaccine - (32-36 weeks) or 60+ years (1 - 1-dose 75+ series) 2013 COVID-19 Vaccine (2 - season) 2024 11/18/2023 Influenza Vaccine Completed 11/18/2023, , 11/19/2016, Additional history exists Depression Screening (Annual PHQ-2) Completed 06/09/2024, 06/09/2024 Fall Risk Screen (Annual) Completed 06/09/2024 IPV Vaccines Aged Out No longer eligi ble based on patient's age to complete this topic Procedures Procedure Name Priority Date/Time Associated Diagnosis Comments T4 (THYROXINE), FREE, S Routine 06/13/2024 9:51 AM CDT Hypothyroidism T3 (TRIIODOTHYRONINE), FREE, S Routine 06/13/2024 9:51 AM CDT Hypothyroidism THYROID FUNCTION CASCADE, S Routine 06/13/2024 9:51 AM CDT Hypothyroidism GLUCOSE, FASTING, S/P Routine 06/13/2024 9:51 AM CDT Maintenance Health Adult BASIC METABOLIC PANEL, S/P Routine 06/13/2024 9:51 AM CDT Hypertension Essential Primary LIPID PANEL, S Routine 06/13/2024 9:51 AM CDT Hyperlipidemia from Last 3 Months Results * T3 (Triiodothyronine), Free (06/13/2024 9:51 AM CDT) T3 (Triiodothyronine), Free, S 2.5 2.0 - 4.4 pg/mL 06/14/2024 9:56 AM CDT [facility] Comment: ----ADDITIONAL INFORMATION---- The testing method is an electrochemiluminescence assay manufactured by [employer] and performed on the Modular or Frances system. Values obtained with different assay methods or kits may be different and cannot be used interchangeably. Test results cannot be interpreted as absolute evidence for the presence or absence of malignant disease. Blood (Blood, Venous) 06/13/2024 9:51 AM CDT 06/14/2024 9:13 AM CDT us Halei Cope M.D. LAB BLOOD ADD-ON Final Resul t [facility] [address] [place] [address] [facility] [address] [place] [address] * Lipid Panel (06/13/2024 9:51 AM CDT) Triglycerides 32 mg/dL 06/13/2024 1:58 PM CDT [facility] Comment: ----REFERENCE VALUE---- Normal: <150 mg/dL Borderline High: 150-199 mg/dL High: 200-499 mg/dL Very High: > or =500 mg/dL Cholesterol, Total 139 mg/dL 2024 1:58 PM CDT [facility] Comment: ----REFERENCE VALUE---- Desirable: < 200 mg/dL Borderline High: 200 - 239 mg/dL High: > or = 240 mg/dL Cholesterol, LDL, Calculated 60 mg/dL 06/13/2024 1:58 PM CDT [facility] Comment: ----REFERENCE VALUE---- Desirable: <100 mg/dL Above Desirable: 100-129 mg/dL Borderline High: 130-159 mg/dL High: 160-189 mg/dL Very High: >=190 mg/dL ----ADDITIONAL INFORMATION---- LDL cholesterol calculated using the Booth/NIH equation. Cholesterol, HDL 70 >=50 mg/dL 06/14/19 1:58 PM CDT [facility] Cholesterol, Non-HDL, Calculated 69 mg/dL 06/13/2024 1:58 PM CDT [facility] Comment: ----REFERENCE VALUE---- Desirable: <130 mg/dL Above Desirable: 130-159 mg/dL Borderline High: 160-189 mg/dL High: 190-219 mg/dL Very High: > or =220 mg/dL Fasting (8 HR or more) Yes 06/13/2024 9:51 AM CDT [facility] Blood (Blood, Venous) 06/13/2024 9:51 AM CDT 06/13/2024 1:12 PM CDT us Halie Cope M.D. LAB BLOOD ADD-ON Final Resul t [facility] [address] [place] [address], [place] [facility] [place] [address] [place] [address] * Thyroid Function Steens (06/13/2024 9:51 AM CDT) TSH, Sensitive 3.4 0.3 - 4.2 mIU/L 06/13/2024 1:56 PM CDT [facility] Blood (Blood, Venous) 06/13/2024 9:51 AM CDT 06/13/2024 1:11 PM CDT us Halie Cope M.D. LAB BLOOD ADD-ON Final Resul t Performing Organization Address [facility] Co de Phone Number [facility] [address] [place] [address], [place] [facility] [facility] in [place] [address] [place] [address] * T4 (Thyroxine), Free (06/13/2024 9:51 AM CDT) T4 (Thyroxine), Free, P 1.4 0.9 - 1.7 ng/dL 06/13/2024 1:47 PM CDT [facility] Blood (Blood, Venous) 06/13/2024 9:51 AM CDT 06/13/2024 1:13 PM CDT Result Grace Cope M.D. LAB BLOOD ADD-ON Final Resul t Performing Organization Address [facility] Co de Phone Number [facility] [address], [place] [address], [facility] OWAT [facility] [place] [address] [place] [address] * Glucose, Fasting (06/13/2024 9:51 AM CDT) Glucose, P 88 70 - 100 mg/dL 06/13/2024 1:56 PM CDT [facility] Last Intake 14 hr 06/13/2024 1:10 PM CDT [facility] Blood (Blood, Venous) 06/13/2024 9:51 AM CDT 06/13/2024 1:09 PM CDT us Halie Cope M.D. LAB BLOOD NON ADD-ON Final R esult Performing Organization Address City/[facility]/ZIP Co de Phone Number [facility] [address] [place] [address], [facility] OWAT [facility] [place] [address] [place] [address] * Basic Metabolic Panel (06/13/2024 9:51 AM CDT) Potassium, P 4.0 3.6 - 5.2 mmol/L 06/13/2024 1:58 PM CDT [facility] Sodium, P 139 135 - 145 mmol/L 06/13/2024 1:58 PM CDT [facility] Chloride, P 103 98 - 107 mmol/L 06/13/2024 1:58 PM CDT [facility] Bicarbonate, P 29 22 - 29 mmol/L 06/13/2024 1:58 PM CDT [facility] Anion Gap, P 7 7 - 15 06/13/2024 1:58 PM CDT [facility] BUN (Blood Urea Nitrogen), P 16 6 - 21 mg/dL 06/13/2024 1:58 PM CDT [facility] Creatinine 0.63 0.59 - 1.04 mg/dL 06/13/2024 1:58 PM CDT [facility] Estimated GFR (eGFR) 86 >=60 mL/min/BSA 06/13/2024 1:58 PM CDT [facility] Comment: Estimated GFR calculated using the 2020 CKD_EPI creatinine equation. Calcium, Total, P 9.3 8.8 - 10.2 mg/dL 06/13/2024 1:58 PM CDT [facility] Glucose, P CANCELED mg/dL 06/13/2024 1:13 PM CDT [facility] Comment: Duplicate test request. Result canceled by the ancillary. Blood (Blood, Venous) 06/13/2024 9:51 AM CDT 06/13/2024 1:12 PM CDT us Halie Cope M.D. LAB BLOOD ADD-ON Final Resul t Performing Organization Address City/[facility]/ZIP Co de Phone Number [facility] [address] [place] [address], [facility] OWAT [facility] [place] [address] [place] [address] from Last 3 Months Insurance MEDICARE [facility] Care Teams Engine Dispatcher Relationship Specialty Start Date End Date Elsewhere, Pcp PCP - General Internal Medicine 06/09/24
--- OUTSIDE RECORDS SUMMARY | 2024-08-18 15:54 | XMS_ITS | Patient Health Record ---
Author Organization [facility] [employer] [facility] Address [address] [address] [place] [id number] Care Team Providers Care Bilingual Sales Assistant Name Role Phone Pieter Medrano Unavailable [phone] Katina Bryant Unavailable Unavailable Allergies No Known Allergies Reason For Referral No Information Medications Medication SIG (Take, Route, Frequency, Duration) Notes Start Date End Date Status Vascepa 1 GM Capsule 1 capsule Orally Twice a day Active Synthroid 88 MCG Tablet 1 TAB Orally Once a day Active Culturelle Probiotics Orally once a day Active Minivelle 0.0375 MG/24HR Patch Twice Weekly 1 patch to skin Transdermal Two times a Week Active Calcium Citrate Plus/Magnesium CALCIUM 666MG D 400 IU MAG 380MG 1 TAB Orally once a day Active Culturelle Probiotics - Tablet Chewable as directed Orally Active Biotin 5000 MCG 1 tablet Orally Once a day Active Xanax 0.25 MG Tablet 1 tablet Orally prn insomnia Active Aspirin 81 MG 1 tablet Orally once a day Active Albuterol Inhaler as needed Ac tive Breo Ellipta 200-25 MCG/INH Aerosol Powder Breath Activated 1 puff Inhalation am Active Lipitor 40 MG Tablet 1 tablet Orally at night Active Metoprolol Succinate 50 MG Capsule ER 24 Hour Sprinkle 1 capsule Orally at night Active FLUoxetine HCl 20 MG Tablet 1 tablet Orally once a day Active CeleBREX 200 MG Capsule 1 capsule Orally every other day Not-Taking Cerefolin NAC 6-90.314-2-600 MG Tablet 1 tablet Orally Once a day Active Multivitamin D3 300iu, B12 33 MCG, BIOTIN 100MCG, Calcium 70MG, C 70 MG, A 1600 IU, FOLATE 2600 MCG, MAG 35MG, B6 8MG Active Losartan Potassium-HCTZ 100-25 MG Tablet 1 tablet Orally Once a day Active Social History Tobacco Use: Social History Observation Description Date Details (start date - stop date) Never Smoker NA - NA Social History Work Status: Social Info Question Answer Notes Are you working? Currently no Patient is retired Tobacco Use: Social Info Question Answer Notes Tobacco Use/Smoking Are you a nonsmoker? yes Additional Details Category Social Info Options Details Marital Status: Yes Tobacco Use: Alcohol None Illegal Drugs None Problems Problem Type SNOMED Code ICD Code Onset Dates Problem Status W/U Status Risk Notes Problem Essential hypertensi on (25993293) Essential hypertension (I10) Active confirmed Problem Vitamin B12 deficien cy (non anemic) (01462348) B12 deficiency (E53.8) Active confirmed Problem Degeneration of cervical intervertebral disc (00583827) Degenerative cervical disc (M50.30) Active confirmed Problem Thyroid disease (18132252) Thyroid disease (E07.9) Active confirmed Problem Recurrent major depression (27546746) Recurrent major depressive disorder, remission status unspecified (F33.9) Active confirmed Problem hypercholesterolemia (disorder) (95188660) Hypercholesteremia (E78.00) Active confirmed Problem Osteoarthritis of multiple joints (632700862) 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) Active confirmed Problem Speech problem (finding) (627529545) Speech complaints (R47.9) Active confirmed Plan Of Treatment Pending Test Test Name Order Date Physical Therapy Evaluate and Treat 05/08/2020 HOMOCYSTEINE 01/01/2020 Insurance Providers Payer Name Payer Address Payer Phone Subscriber Number Group Number Insured Name Patient Relationship to Insured Coverage Start Date Coverage End Date Medicare Part B [address] [address] [place] [address] [id number] LUZMARIA FALLON Self - patient is the insured [place] [employer] [facility] and [facility] PPS Only [address] [place] [address] [phone] [id number] LUZMARIA FALLON Self - patient is the insured Medical (General) History Medical History History ICD Code Arthritis Depression High Blood Pressure Memory Loss Surgical History Surgery Date(Month/Year) Shoulder Replace 2014 3 Rotator Cuffs 4840-2809 Bladder Repair 2013 Back (Lower Spine) 2010 Knee Replacement 2007 Knee Replacement 2009 Tonsils 1950
--- OUTSIDE RECORDS SUMMARY | 2024-08-18 15:55 | XMS_ITS | Patient Health Record ---
Author Organization [facility] [place] Address [address] [place] [address] Care Team Providers Care Special Events Fundraiser Name Role Phone ISATURAYNA LINARES Primary Care Provider UnavailROSE Carlson Unavailable [phone] Migration, Provider Unavailable Unavailable Allergies No Known Allergies Reason [...] once a day for 90 days Active B-12 1000 MCG 1 tab(s) orally once a day Active Breo Ellipta 200 MCG-25 MCG/INH 1 PUFF(S) INHALED ONCE A DAY *Please review and pick correct strength-formulati on from [employer] options. If intended option is not shown, discontinue and re-order from Quick Search* Active Atorvastatin Calcium 40 MG 1 tab(s) orally once a day Active Metoprolol Succinate ER 50 MG 1 [...] MG 2 orally once a day Active Social History Tobacco Use: Social History Observation Description Date Details (start date - stop date) Never Smoker NA - NA Alcohol Screen: Question Answer Notes Did you have a drink containig alcohol in the year: No Tobacco Use: Question Answer Notes Smoking Status: nonsmoker Problems Problem Type SNOMED Code ICD Code Onset Dates Problem Status W/U Status Risk Notes Problem Toxic diffuse goiter with no crisis (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) 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) Active confirmed Problem Hypothyroidism (93083324) Other specified hypothyroidism (E03.8) Active confirmed Encounters Encounter Location Date Provider Diagnosis [facility] [place] [place] [address] [place] [address] 04/22/2024 Provider Migration Plan Of Treatment Pending Test Test Name Order Date TSH, 3RD GENERATION 06/17/2023 Insurance Providers Payer Name Payer Address Payer Phone Subscriber Number Group Number Insured Name Patient Relationship to Insured Coverage Start Date Coverage End Date MEDICARE PART B [address] [address] [place], [place] [id number] Litzy Perez Self - patient is the insured [facility] [address] [place], [place] [id number] Litzy Perez Self - patient is the insured Medical (General) History Medical History History ICD Code ashtma hld hypothryoid htn Surgical History Surgery Date(Month/Year) t a bladder prolacpse rt shluder lami bilat tka
--- OUTSIDE RECORDS SUMMARY | 2024-08-18 15:55 | XMS_ITS | Encounter Summary ---
Author Organization [facility] Address [address] [place] [address] Care Team Providers Care Electrical Mechanic Name Role Phone Elsewhere, Pcp Primary Care Provider Unavailabl e Reason for Visit * Reason Onset Date Comments Med Refill 08/10/2024 Encounter Details Date Type Department Care Team (Late st Contact Info) Description 08/10/2024 Refill Department of Family Medicine, [facility], in [address] [address] Halie Cope M.D. 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 Does not appear that this has been being prescribed by Agency provider. Is a new RX appropriate? Provider: appears she is being followed by Malina Cope and that is who the pharmacy is requesting RX from Requested Prescriptions Pending Prescriptions Disp Refills celecoxib (CeleBREX) 200 mg capsule Sig: Take 1 capsule (200 mg total) by mouth daily as needed for pain. documented in this encounter Plan of Treatment Not on file documented as of this encounter Visit Diagnoses Not on filedocumented in this encounter Care Teams Electrical Mechanic Relationship Specialty Start Date End Date Elsewhere, Pcp PCP - General Internal Medicine 06/09/24 documented as of this encounter
--- OUTSIDE RECORDS SUMMARY | 2024-08-18 15:55 | XMS_ITS | Patient Health Record ---
Author Organization [facility] Address [address] [facility] e [address] [place] [address] Care Team Providers Care Carpenter Name Role Phone Antoine PRICE, [facility] Primary Care Provider Unavail able Isabella Damon [phone] Allergies No Known Allergies Reason For Referral No Information Medications Medication SIG (Take, Route, Frequency, Duration) Notes Start Date End Date Status Multivitamin - 1 tablet Orally Once a day for 30 day(s) Active amLODIPine Besylate 2.5 MG 1 tablet Orally twice a day Active Andrei-Mag Active CeleBREX 200 MG 1 capsule with food Orally Once a day for 30 day(s) Active Culturelle - as directed Orally Active Vascepa 1 GM 2 capsules with meal s Orally Twice a day for 30 day(s) Active Lipitor 40 MG 1 tablet Orally Once a day for 90 days Active FLUoxetine HCl 40 MG 1 capsule Orally On ce a day for 30 day(s) Active Vitamin D3 50 MCG (2000 UT) 1 capsule Orally Once a day for 30 day(s) Active Vitamin B12 1000 MCG 1 tablet Orally Onc e a day for 30 day(s) Active Metoprolol Succinate ER 50 MG 1 tablet Orally Once a day for 30 day(s) Active Aspirin 81 MG 1 tablet Orally twic e a week Active Minivelle 0.0375 MG/24HR 1 patch to skin Transdermal Two times a Week for 30 day(s) Active Biotin 5000 MCG 1 tablet Orally Once a day for 30 day(s) Active Breo Ellipta 200-25 MCG/ACT 1 puff Inhalation Once a day Active Albuterol Sulfate HFA 108 (90 Base) MCG/ACT 1 puff as needed Inhalation every 4 hrs as needed Active Social History Tobacco Use: Social History Observation Description Date Details (start date - stop date) Former Smoker NA - NA Tobacco Use/Smoking Question Answer Notes Are you a former smoker Problems Problem Type SNOMED Code ICD Code Onset Dates Problem Status W/U Status Risk Notes Problem Hyperlipidemia (64751211) Hyperlipidemia, unspecified (E78.5) Active confirmed Problem Essential hypertension (68960724) Essential (primary) hypertension (I10) Active confirmed Problem Atherosclerotic heart disease of [place] coronary artery without angina pectoris (717920234082758) Atherosclerosis of coronary artery of [place] heart without angina pectoris, unspecified vessel or lesion type (I25.10) Active confirmed 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) Active confirmed Problem Mixed hyperlipidemia (034367134) Hyperlipidemia, mixed (E78.2) Active confirmed Problem Atherosclerosis of coronary artery without angina pectoris (033042651367040) Atherosclerosis of [place] coronary artery of [place] heart without angina pectoris (I25.10) Active confirmed Problem Occlusion and stenosis of multiple and bilateral cerebral arteries (206810829) Carotid stenosis, bilateral (I65.23) Active confirmed Problem Venous insufficiency of leg (disorder) (409007313) Venous insufficiency (I87.2) Active confirmed Problem Angina (136472207) Atheroscleros is of [place] coronary artery of [place] heart with angina pectoris (I25.119) Active confirmed Plan Of Treatment No Information Insurance Providers Payer Name Payer Address Payer Phone Subscriber Number Group Number Insured Name Patient Relationship to Insured Coverage Start Date Coverage End Date [place] Part [place] [address] [address] [place] [address] [id number] Litzy Seay Self - patient is the insured BC Out of State [address] [place] [address] [phone] [id number] Litzy Seay Self - patient is the insured Medical (General) History Medical History History ICD Code high blood pressure asthma
--- OUTSIDE RECORDS SUMMARY | 2024-08-18 15:55 | XMS_ITS | Encounter Summary ---
Author Organization [facility] Address [address] [place] [address] Care Team Providers Care Plug Overwrap Machine Tender Name Role Phone Elsewhere, Pcp Primary Care Provider Unavailabl e Reason for Visit * Reason Comments Med Refill Encounter Details Date Type Department Care Team (Late st Contact Info) Description 07/04/2024 Refill Department of Family Medicine, [facility], in [place], [place] [address] [place] [phone] Halie Cope M.D. 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
--- OUTSIDE RECORDS SUMMARY | 2024-08-18 15:55 | XMS_ITS | Encounter Summary ---
Author Organization [facility] Address [address] [place] [address] Care Team Providers Care Arabic Translator Name Role Phone Elsewhere, Pcp Primary Care Provider Unavailabl e Encounter Details Date Type Department Care Team (Latest Contact Info) Description 06/20/2024 Clinical Communication Department of Ophthalmology in [place], [place] [address] [place] [address] Provider, Unknown Social History Tobacco Use Types Packs/Day Years Used Date Smoking Tobacco: Never Smokeless Tobacco: Never Comments No Sex and Gender Information Value Date Recorded Sex Assigned at Female 08/18/2024 12:20 PM CDT 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
--- OUTSIDE RECORDS SUMMARY | 2024-08-18 15:55 | XMS_ITS | Encounter Summary ---
Author Organization [facility] Address [address] [place] [address] Care Team Providers Care Tailor Apprentice Name Role Phone Elsewhere, Pcp Primary Care Provider Unavailabl e Reason for Visit * Reason Comments Med Refill Encounter Details Date Type Department Care Team (Late st Contact Info) Description 08/14/2024 Refill Department of Family Medicine, [facility], in [place], [place] [address] [place] [address] Halie Cope M.D. 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 Does not appear that this has been being prescribed by [facility] provider. Is a new RX appropriate? Provider: appears she is being followed by Malina Cope and that is who the pharmacy is requesting RX from Scheduled to see Malina Cope later today so you may prefer to defer this refill request from the pharmacy during/after visit. Requested Prescriptions Pending Prescriptions Disp Refills aspirin [address] tablet [Pharmacy Med Name: ASPIRIN EC 81 MG TABLET] 90 tablet 1 Sig: TAKE ONE TABLET BY MOUTH ONE TIME DAILY documented in this encounter Plan of Treatment Not on file documented as of this encounter Visit Diagnoses Not on filedocumented in this encounter Care Teams Tailor Apprentice Relationship Specialty Start Date End Date Elsewhere, Pcp PCP - General Internal Medicine 06/09/24 documented as of this encounter
--- OUTSIDE RECORDS SUMMARY | 2024-08-18 15:55 | XMS_ITS | Encounter Summary ---
Author Organization [facility] Address [address] [place] [address] Care Team Providers Care Human Resources Benefits Specialist Name Role Phone Elsewhere, Pcp Primary Care Provider Unavailabl e Reason for Visit * Reason Comments Med Change Request Encounter Details Date Type Department Care Team (Late st Contact Info) Description 06/29/2024 Refill Department of Family Medicine, [facility], in [place], [place] [address] [place] [phone] Ed Waddell, PJasonAJason-Kayla. 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 Pharmacy is asking for Clarification. Primary Provider: ELSEWHERE, PCP Requested Prescriptions Pending Prescriptions Disp Refills albuterol 2.5 mg/0.5 mL nebulizer solution [Pharmacy Med Name: ALBUTEROL 2.5 MG/0.5 ML HAILEY] 0 documented in this encounter Plan of Treatment Not on file documented as of this encounter Visit Diagnoses Not on filedocumented in this encounter Care Teams Human Resources Benefits Specialist Relationship Specialty Start Date End Date Elsewhere, Pcp PCP - General Internal Medicine 06/09/24 documented as of this encounter
--- OUTSIDE RECORDS SUMMARY | 2024-08-18 15:55 | XMS_ITS | Encounter Summary ---
Author Organization [facility] Address [address] [place] [address] Care Team Providers Care Radiological Metallurgist Name Role Phone Elsewhere, Pcp Primary Care Provider Unavailabl e Encounter Details Date Type Department Care Team (Late st Contact Info) Description 07/05/2024 Orders Only Department of Family Medicine, [facility], in [place], [place] [address] [place] [phone] Ed Waddell, P.A.-C. 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
--- OUTSIDE RECORDS SUMMARY | 2024-08-18 15:55 | XMS_ITS | Encounter Summary ---
Author Organization [facility] Address [address] [place] [address] Care Team Providers Care Center Line Cutter Operator Name Role Phone Elsewhere, Pcp Primary Care Provider Unavailabl e Reason for Visit * Reason Comments Med Change Request Encounter Details Date Type Department Care Team (Late st Contact Info) Description 07/07/2024 Refill Department of Family Medicine, [facility], in [place], [place] [address] [place] [address] Halie Cope M.D. 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
--- OUTSIDE RECORDS SUMMARY | 2024-08-18 15:56 | XMS_ITS | Patient Health Record ---
Author Organization [facility] Address [address] [address] Care Team Providers Care Dental Amalgam Processor Name Role Phone JOAQUINKHOI Primary Care Provider Unavailjenna e JAMIA LYNN Unavailable [phone] JA STEVENS MD Unavailable Allergies No Known Allergies Reason For Referral No Information Medications Medication SIG (Take, Route, Frequency, Duration) Notes Start Date End Date Status Culturelle Adult Ult Balance - as directed Orally Active Breo Ellipta 200-25 MCG/INH 1 puff Inhal ation Once a day Active Calcium Citrate + - as directed Orally Active Vascepa 1 GM 1 CAPSULE WITH MEAL Oral Twice a day Active Losartan Potassium-HCTZ 100-25 MG 1 tablet Oral Once a day Act nivia Atorvastatin Calcium 40 MG 1 tablet Oral Once a day Active amLODIPine Besylate 2.5 MG 1 tablet Oral Once a day Active Cerefolin NAC 6-90.314-2-600 MG 1 tablet Orally Once a day for 30 day(s) Active Minivelle 0.025 MG/24HR 1 patch to skin Transdermal Two times a Week for 30 day(s) Active Multivitamin Adult - 1 tablet Orally Onc e a day for 30 day(s) Active Synthroid 88 MCG 1 tablet in the morn ing on an empty stomach Oral Once a day Active Albuterol Sulfate HFA 108 (90 Base) MCG/ACT 1 puff as needed Inhalation every 4 hrs Active FLUoxetine HCl 20 MG 1 capsule Oral Once a day Active Biotin 5000 5 MG 1 capsule Orally Onc e a day for 30 day(s) Active Metoprolol Succinate ER 50 MG 1 tablet Oral Once a day Act nivia Aspirin 81 81 MG 1 tablet Orally Once a day for 30 day(s) Active Celecoxib 200 MG 1 capsule with food Oral EVERY OTHER DAY Active Social History Tobacco Use: Social History Observation Description Date Details (start date - stop date) Former Smoker NA - NA Tobacco Use Question Answer Notes Are you a: former smoker Are you a: former smoker Problems Problem Type SNOMED Code ICD Code Onset Dates Problem Status W/U Status Risk Notes Problem Right carpal tunnel syndrome (G56.01) Active confirmed Problem Entrapment of right ulnar nerve at elbow (2948763670) 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 Plan Of Treatment No Information Insurance Providers Payer Name Payer Address Payer Phone Subscriber Number Group Number Insured Name Patient Relationship to Insured Coverage Start Date Coverage End Date MEDICARE PART B [address] [address] [place] [phone] [id number] LUZMARIA FALLON Self - patient is the insured [facility] [address] [place] [address] [id number] LUZMARIA FALLON Self - patient is the insured Medical (General) History Medical History History ICD Code HTN No Diabetes, type II No Heart disease No Respiratory disease Yes Cancer No Fibromyalgia No Arthritis Yes Psychiatric Disorders No Chronic pain Yes Myasthenia Gravis No MVA No Liver Disease No Addiction to Drugs and Alcohol No Surgical History Surgery Date(Month/Year) Laminectomy
--- OUTSIDE RECORDS SUMMARY | 2024-08-18 15:56 | XMS_ITS | Encounter Summary ---
Author Organization [facility] Address [address] [place] [address] Care Team Providers Care Sponsorship Manager Name Role Phone Elsewhere, Pcp Primary Care Provider Unavailabl e Reason for Referral * Outpatient (Routine) - Authorized Specialty Diagnoses / Procedures Referred By Scar t Referred To Contact Diagnoses Pain Low Back Unspecified Halie Cope M.D. [address] [place] [address] Phone: tel: fax: Referral ID Status Reason Start Date Expiration Date V isits Requested Visits Authorized [id number] Authorized 06/19/2024 12/19/2025 1 1 Encounter Details Date Type Department Care Team (Late st Contact Info) Description 06/19/2024 Orders Only Department of Family Medicine, [facility], in [place], [place] [address] [place] [address] Halie Cope M.D. 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
--- OUTSIDE RECORDS SUMMARY | 2024-08-18 15:56 | XMS_ITS | Clinical Summary ---
Author Organization [facility] Address [address] [place] [address] Care Team Providers Care Cashier Assistant Name Role Phone Lucy Szymanski MD Primary Care Provider + Allergies No known active allergies Social History Tobacco Use Types Packs/Day Years Used Date Smoking Tobacco: Never Assessed Comments Unknown Sex and Gender Information Value Date Recorded Sex Assigned at Not on file Legal Sex Female 10:46 AM CDT Gender Identity Not on file Sexual Orientation Not on file Plan of Treatment Health Maintenance Due Date Last Done Comments Tdap 1949 Depression screening for age 12+ 1950 BMI (ht and wt on same day) for age 18+ 02/29/1956 Tetanus booster 1958 Pneumococcal series for age 50+ (1 of 1 - PCV) 02/29/1988 Zoster (shingles) series for age 50+ (1 of 2) 02/29/1988 DEXA/DXA scan for age 65+ 2003 RSV vaccine for adults or (1 - 1-dose 75+ series) 2013 COVID-19 vaccine series (2 - season) 2024 11/18/2023 Influenza Vaccine (Season Ended) 2024 Hepatitis B series for 19+ Aged Out N o longer eligible based on patient's age to complete this topic Insurance BLUE CROSS OF [employer] MEDICARE [place] ONLY Care Teams Cashier Assistant Relationship Specialty Start Date End Date Lucy Szymanski MD [address] [place] [address] PCP - General Family Practice 12/23/23
[2024-08-18 16:17] VITALS: BP 158/78; PULSE 60; RESP 18; TEMP 36.5; O2SAT 97; BMI 21.6
--- NOTE | 2024-08-18 16:25 | ED_ITS ---
HPI - Extremity Injury (Lower) General Time Seen by Provider: 16:25 Date Seen: 08/18/24 Chief Complaint: Extremity Pain/Injury, Lower Stated Complaint: Pain in RT leg, possible blood clot Time Seen by Provider: 08/18/24 16:10 Source: patient and RN notes reviewed Mode of arrival: ambulatory Limitations: no limitations History of Present Illness HPI Narrative: This 84-year-old female was requested by her primary care doctor to come into the ER to get an ultrasound to rule out a blood clot. About 2 and half days ago she just started noticing some aching in pain in her right lower leg from below the knee to above the ankle. There was no trauma. She has had both knees replaced, does have a lot of back issues. She has had sciatica before. She has had pain going down the back of the leg before but is not feeling that now. Her skin feels tender an achy throughout this lower extremity. She has been trying some Tylenol. She was driving and her leg started bothering her so much that she had to have her drive. It actually feels better when she is standing in gets up and moves around. There is no chest pain, no shortness of breath. She does have asthma which has been stable, has inhalers. No fevers or chills. In patient's medications, do see that she is on an estrogen patch. Related Data Home Medications ?Medication ?Instructions ?Recorded ?Confirmed aspirin 81 mg tablet,delayed 81 mg PO .TIW 11/18/23 release (Adult Aspirin Regimen) Previous Rx's ?Medication ?Instructions ?Recorded albuterol sulfate 90 mcg/actuation 1 inh inhalation Q4 H PRN shortness 01/18/24 aerosol inhaler (Ventolin HFA) of breath or wheezing # 6.7 grams amlodipine 2.5 mg tablet 2.5 mg PO BID #180 tabs 12/30 11/22 atorvastatin 40 mg tablet 40 mg PO QDAY #90 tabs 01/17 fluoxetine 40 mg capsule 40 mg PO QAM #90 caps icosapent ethyl 1 gram capsule 1 g PO BID #180 caps (Vascepa) levothyroxine 25 mcg tablet 25 mcg PO QAM #90 tabs (Synthroid) metoprolol succinate 50 mg 50 mg PO QDAY #90 tabs 12/30 11/22 tablet,extended release 24 hr trazodone 50 mg tablet 25 mg (1/2 x 50 mg) PO QHS P RN 01/18/24 insomnia #45 tabs benzonatate 200 mg capsule 200 mg PO BID PRN cough #20 caps 05/05/24 estradiol 0.0375 mg/24 hr 1 patch transdermal 2XW #24 ea 05/26/24 semiweekly transdermal patch (Minivelle) celecoxib 200 mg capsule (Celebrex) 200 mg PO QDAY PRN pain #45 caps 07/18/24 fluticasone furoate 200 1 inh inhalation QDAY #60 ea 08/07/24 mcg-vilanterol 25 mcg/dose inhalation powder (Breo Ellipta) prednisone 20 mg tablet 20 mg PO BID #10 tabs Allergies Allergy/AdvReac Type Severity Reaction Status Date / Time No Known Drug Allergies Allergy Verified 08/18/24 16:25 Review of Systems Status of ROS: Reports: 6 or more systems reviewed and unremarkable except as noted in History and below [facility] Medical History Extremely dense tissue of both breasts on mammography ?R92.343 - Mammographic extreme density, bilateral breasts (ICD-10) On hormone replacement therapy ?Z79.890 - Hormone replacement therapy (ICD-10) Coronary artery disease (2021) ?I25.10 - Atherosclerotic heart disease of [place] coronary artery without angina pectoris (ICD-10) Basal cell carcinoma of face (~1989) ?C44.310 - Basal cell carcinoma of skin of unspecified parts of face (ICD-10) 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 ?I70.213 - Atherosclerosis of [place] arteries of extremities with intermittent claudication, bilateral legs (ICD-10) History of echocardiogram ?Z92.89 - Personal history of other medical treatment (ICD-10) Hearing loss ?H91.90 - Unspecified hearing loss, unspecified ear (ICD-10) Osteopenia ?M85.80 - Other specified disorders of bone density and structure, unspecified site (ICD-10) Elevated coronary artery calcium score ?R93.1 - Abnormal findings on diagnostic imaging of heart and coronary circulation (ICD-10) Insomnia ?G47.00 - Insomnia, unspecified (ICD-10) Atherosclerotic heart disease of [place] coronary artery without angina pectoris ?I25.10 - Atherosclerotic heart disease of [place] coronary artery without angina pectoris (ICD-10) Exophthalmos of left eye ?H05.20 - Unspecified exophthalmos (ICD-10) Hypothyroidism (1997) ?E03.9 - Hypothyroidism, unspecified (ICD-10) Depression ?F32.A - Depression, unspecified (ICD-10) Asthma ?J45.909 - Unspecified asthma, uncomplicated (ICD-10) Generalized osteoarthritis ?M15.9 - Polyosteoarthritis, unspecified (ICD-10) Hyperlipidemia ?E78.5 - Hyperlipidemia, unspecified (ICD-10) Essential hypertension ?I10 - Essential (primary) hypertension (ICD-10) Surgical History History of vaginal delivery History of cataract surgery ?Z98.49 - Cataract extraction status, unspecified eye (ICD-10) History of tonsillectomy ?Z90.89 - Acquired absence of other organs (ICD-10) History of cardiac catheterization (2023) ?Z98.890 - Other specified postprocedural states (ICD-10) History of sacrocolpopexy (2012) ?Z98.890 - Other specified postprocedural states (ICD-10) History of hysterectomy (1985) ?Z90.710 - Acquired absence of both cervix and uterus (ICD-10) History of lumbar laminectomy (2010) ?Z98.890 - Other specified postprocedural states (ICD-10) History of total knee replacement (TKR) (2012) ?Z96.659 - Presence of unspecified artificial knee joint (ICD-10) History of reverse total replacement of shoulder joint (2015) ?Z96.619 - Presence of unspecified artificial shoulder joint (ICD-10) Family History Father Parkinson's disease Maternal Grandfather Diabetes Brother Prostate cancer Schizophrenia Suicide Brother Addiction Colon cancer Social History 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: , 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 Currently not exercising but will start Ex-smoker quit age [age] years ago 15 pack years Drinks 3 beers a week Smoking Status: Former smoker How often do you have a drink containing alcohol: monthly or less How many standard drinks containing alcohol do you have on a typical day: 1 or 2 AUDIT-C Alcohol total score: 1 Non-prescribed substance use: denies use Exam Const: Vital Signs, click to edit/add: Vital Signs - 24 hr 08/18/24 16:17 08/18/24 18:30 08/18/24 18:34 Temperature 97.7 F Pulse Rate 63 Pulse Rate [Right Pulse Oximeter] 60 Respiratory Rate 18 16 Blood Pressure 175/105 H 171/96 H Blood Pressure [Ri ght Upper Arm] 158/78 H Pulse Oximetry 97 96 Oxygen Delivery Me thod Room Air Room Air This 84-year-old female is ambulatory back into the ER, did watch her walk. She is of slender frame. She is alert come interactive, no apparent distress, very pleasant. Lungs are clear, good air entry, no wheezing crackles, no tachypnea, no accessory muscle use. CV regular, very soft systolic murmur heard upper sternal border, normal S1-S2, no S3-S4. Abdomen soft, nontender, nondistended. She actually has some bruising on the left lower leg above the lateral malleolus. She is not really sure what happened but this leg is not bothering her. Neurovascular is intact in her right lower extremity, good pulses, normal sensation of her toes and foot. She absolutely has no tenderness when I palpate along the anterior tibia, no pretibial edema noted. Calf is really nontender but she is describing achy pain going up and down this leg below the knee. She has had a prior knee replacement, can see the surgical scar medially along the leg, she has full flexion and extension, there is no knee joint effusion, no erythema. Documenting provider has reviewed patient's vital signs: yes Course Course ED Course: Will obtain an ultrasound but clinically doubt DVT. She is on estrogen and the pain certainly could represent a DVT. Will get imaging of the tib-fib as well as her knee. The fact that standing actually makes her feel better would go against prosthetic loosening. Based on her history and clinical exam, doubt anything infectious but again will look at imaging to see if there is anything suspicious with the knee or the tibia, fibula. Await imaging with ultrasound and plain films. Do not feel that she needs any labs at this time. Reevaluation(s) Time of Reevaluation #1: 18:32 Reevaluation #1: Have reviewed negative x-ray studies with patient. She states her doctor actually sent in a course of prednisone for her. She declined pain pills, she declines them now. She will continue with Tylenol. We discussed starting the prednisone and trying this, it certainly could be an atypical presentation of sciatica, pain coming from her back. She will try this, she will follow up with her primary care provider. She declines any further pain management from me as well. Time of Reevaluation #2: 19:22 Additional Reevaluation(s): Patient did call back to the ED, her doctor did not send in prednisone. We did subsequently [facility]. Vital Signs Vital signs: Initial Vital Signs Temperature 97.7 F 08/18/24 16:17 Temperature Source Temporal Artery Scan 08/18/24 16:17 Pulse Rate 60 08/18/24 16:17 Respiratory Rate 18 08/18/24 16:17 Blood Pressure 158/78 H 08/18/24 16:17 Blood Pressure Mean 104 08/18/24 16:17 Blood Pressure Position Sitting 08/18/24 16:17 Pulse Oximetry 97 08/18/24 16:17 Oxygen Delivery Method Room Air 08/18/24 16:17 Vital Signs Temperature 97.7 F 08/18/24 16:17 Pulse Rate 60 08/18/24 16:17 Respiratory Rate 18 08/18/24 16:17 Blood Pressure 158/78 H 08/18/24 16:17 Pulse Oximetry 97 08/18/24 16:17 Oxygen Delivery Method Room Air 08/18/24 16:17 Temperature 97.7 F 08/18/24 16:17 Pulse Rate 63 08/18/24 18:30 Respiratory Rate 16 08/18/24 18:30 Blood Pressure 171/96 H 08/18/24 18:34 Pulse Oximetry 96 08/18/24 18:30 Oxygen Delivery Method Room Air 08/18/24 18:30 MDM - Extremity Injury (Lower) Imaging Data Venous US: Attestation: I have reviewed the pertinent imaging results. Radiologist's impression: Patient: LUZMARIA FALLON Facility:?[facility] Patient ID:?[id number] Site Patient ID:?[id number]. Site :?[id number] Study:?US-Extremity Right -08/18/2024 4:58:38 PM Ordering Physician:?Gilberto De La Rosa Final Report: Indication: leg pain, achy Technique: Real-time longitudinal and transverse sonographic aponte-scale imaging with and without compression, as well as color, duplex, and spectral Doppler imaging before and after augmentation, was obtained of the deep system of the right lower extremity, including the common femoral, femoral, popliteal, posterior tibial, and peroneal veins. Comparison: None. Findings: Common femoral vein: No evidence of thrombus. Femoral vein: No evidence of thrombus. Popliteal vein: No evidence of thrombus. Calf veins: Patent. Impression: No ultrasound evidence of deep venous thrombosis. Dictated by Samir Weinberg MD @ 08/18/2024 5:12:50 PM (Electronic Signature) XR right knee: Attestation: I have reviewed the pertinent imaging results. Radiologist's impression: Patient: [facility] Facility:?[facility] Patient ID:?[id number] Site Patient ID:?[id number]. Site :?[id number] Study:?XRay-Knee Right 2V-08/18/2024 5:07:41 PM Ordering Physician:?Gilberto De La Rosa Final Report: Indication: Pain Technique: Two views of the right knee Comparison: None Findings/Impression: No acute fracture or malalignment. No knee joint effusion. Postsurgical changes of right total knee arthroplasty and patellar resurfacing without evidence of hardware related complication. No suspicious osseous lesions. The soft tissues are without acute abnormality. Trace vascular calcifications. Dictated by Luke Lyons MD @ 08/18/2024 5:38:27 PM (Electronic Signature) XR right tib fib: Attestation: I have reviewed the pertinent imaging results. Radiologist's impression: Patient: [facility] Facility:?[facility] Patient ID:?[id number] Site Patient ID:?[id number]. Site :?[id number] Study:?XRay-Extremity Right TIB/FIB 2V-08/18/2024 5:07:18 PM Ordering Physician:Roxana De La Rosa Final Report: Indication: PAIN Technique: Two views of the right tibia and fibula. Comparison: None. Findings: No acute displaced fracture or malalignment is seen. Postsurgical changes from right total knee arthroplasty. Impression: No acute displaced fracture or malalignment is seen. Dictated by Samir Weinberg MD @ 08/18/2024 5:36:31 PM (Electronic Signature) Discharge Plan Discharge Clinical Impression: Acute pain of right lower extremity Patient Disposition: Home, Self-Care Condition: Stable Instructions: Leg Pain (ED) Additional Instructions: Do agree with trying prednisone that her doctor sent in. I do think there is a chance that this could be pain coming from her back. On the x-ray of the knee, the knee replacement looks to be well seated and no concerns. There were no changes on the x-ray of the tibia or fibula. Your ultrasound is negative for blood clot. Continue with Tylenol 1000 mg 3 times a day. Follow-up with your doctor next week with ongoing symptoms. Prescriptions: New prednisone 20 mg tablet 20 mg PO BID Qty: 10 0RF Rx Instructions: Take with food. No Action aspirin [Adult Aspirin Regimen] 81 mg tablet,delayed release (DR/EC) 81 mg PO .TIW amlodipine 2.5 mg tablet 2.5 mg PO BID Qty: 180 1RF atorvastatin 40 mg tablet 40 mg PO QDAY Qty: 90 1RF fluoxetine 40 mg capsule 40 mg PO QAM Qty: 90 1RF icosapent ethyl [Vascepa] 1 gram capsule 1 g PO BID Qty: 180 1RF levothyroxine [Synthroid] 25 mcg tablet 25 mcg PO QAM Qty: 90 1RF metoprolol succinate 50 mg tablet extended release 24 hr 50 mg PO QDAY Qty: 90 1RF trazodone 50 mg tablet 25 mg PO QHS PRN (Reason: insomnia) Qty: 45 3RF albuterol sulfate [Ventolin HFA] 90 mcg/actuation HFA aerosol inhaler 1 inh inhalation Q4H PRN (Reason: shortness of breath or wheezing) Qty: 6.7 3RF benzonatate 200 mg capsule 200 mg PO BID PRN (Reason: cough) Qty: 20 0RF estradiol [Minivelle] 0.0375 mg/24 hr patch semiweekly 1 patch transdermal 2XW Qty: 24 3RF Rx Instructions: apply 1 patch for 3 days alternating with 1 patch for 4 days each week for 3 wks per 4-wk cycle celecoxib [Celebrex] 200 mg capsule 200 mg PO QDAY PRN (Reason: pain) Qty: 45 0RF fluticasone furoate-vilanterol [Breo Ellipta] 200-25 mcg/dose blister with device 1 inh inhalation QDAY Qty: 60 1RF Follow Up/Referrals: Lucy Szymanski MD [Primary Care Provider, Family Practice] Stand Alone Forms: [employer] Info Instructions
--- NOTE | 2024-08-18 16:25 | CRLHL7_ITS ---
For Patients: As a result of the Century Cures Act, medical imaging exams and procedure reports are released immediately into your electronic medical record. You may view this report before your referring provider. If you have questions, please contact your health care provider. Indication: leg pain, achy Technique: Real-time longitudinal and transverse sonographic aponte-scale imaging with and without compression, as well as color, duplex, and spectral Doppler imaging before and after augmentation, was obtained of the deep system of the right lower extremity, including the common femoral, femoral, popliteal, posterior tibial, and peroneal veins. Comparison: None. Findings: Common femoral vein: No evidence of thrombus. Femoral vein: No evidence of thrombus. Popliteal vein: No evidence of thrombus. Calf veins: Patent. Impression: No ultrasound evidence of deep venous thrombosis. Dictated by Samir Weinberg MD @ 08/18/2024 5:12:50 PM (Electronically Signed)
--- NOTE | 2024-08-18 16:33 | CRLHL7_ITS ---
For Patients: As a result of the Cures Act, medical imaging exams and procedure reports are released immediately into your electronic medical record. You may view this report before your referring provider. If you have questions, please contact your health care provider. Indication: Pain Technique: Two views of the right knee Comparison: None Findings/Impression: No acute fracture or malalignment. No knee joint effusion. Postsurgical changes of right total knee arthroplasty and patellar resurfacing without evidence of hardware related complication. No suspicious osseous lesions. The soft tissues are without acute abnormality. Trace vascular calcifications. Dictated by Luke Lyons MD @ 08/18/2024 5:38:27 PM (Electronically Signed)
--- NOTE | 2024-08-18 16:33 | CRLHL7_ITS ---
For Patients: As a result of the Cures Act, medical imaging exams and procedure reports are released immediately into your electronic medical record. You may view this report before your referring provider. If you have questions, please contact your health care provider. Indication: PAIN Technique: Two views of the right tibia and fibula. Comparison: None. Findings: No acute displaced fracture or malalignment is seen. Postsurgical changes from right total knee arthroplasty. Impression: No acute displaced fracture or malalignment is seen. Dictated by Samir Weinberg MD @ 08/18/2024 5:36:31 PM (Electronically Signed)
[2024-08-18 18:30] VITALS: BP 175/105; PULSE 63; RESP 16; O2SAT 96
[2024-08-18 18:34] VITALS: BP 171/96
== END 2024-08-18 18:42 | disposition home or self-care (01) ==
PROVIDERS: Emergency Provider Family Medicine; PCP Family Medicine
DX: M79.661 Pain in right lower leg (principal)
CPT/HCPCS: 73560; 73590; 93971; 99283; 99284

== ENCOUNTER 2024-10-26 18:19 | Emergency (ER) | payer MEDICARE, BC, SELFPAY ==
--- OUTSIDE RECORDS SUMMARY | 2021-04-14 08:25 | XMS_ITS | Continuity of Care Document ---
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 Phone Azeem Johnson MD Unavailable Unavailable Allergies, Adverse Reactions, Alerts Substance Reaction Status Criticality No Known Allergies Active No Inform ation Medications Medication Instructions Dosage Effective Dates (start - stop) Status Comments Estraderm 0.05 mg/24 hr Transderm Patch - Active Synthroid 25 mcg Tab - Active Hyzaar 100 mg-12.5 mg Tab - Active Celebrex 50 mg Cap - Active albuterol sulfate HFA 90 mcg/actuation Aerosol Inhaler - Active VITAMIN B-12 (unknown strength) Not Available - Active VITAMIN B-6 (unknown strength) Not Available - Active AMLODIPINE BESYLATE (unknown strength) take 1 tablet by oral route every day Not Available - Active VITAMIN D3 (unknown strength) Not Available - Active VAZALORE (unknown strength) Not Available - Active BIOTIN (unknown strength) Not Available - Active PROBIOTIC (unknown strength) Not Available - Active CALCIUM-MAGNESIUM (unknown strength) Not Available - Active BREO ELLIPTA (unknown strength) Not Available - Active LIPITOR (unknown strength) Not Available - Active METOPROLOL SUCCINATE (unknown strength) Not Available - Active FLUOXETINE HCL (unknown strength) Not Available - Active CEREFOLIN (unknown strength) Not Available - Active Pred Forte 1 % eye drops,suspension instill 1 drop by ophthalmic route 2 times every day into the left eye 1 drop - No Longer Active VASCEPA (unknown strength) Not Available - No Longer Active Procedures Procedure Date No Charge POSTOP FOLLOW-UP VISIT POSTOP FOLLOW-UP VISIT POSTOP FOLLOW-UP VISIT POSTOP FOLLOW-UP VISIT CATARACT SURG W/IOL, 1 STAGE Oct [facility] Oct- OPHTHALMIC BIOMETRY Oct POSTOP FOLLOW-UP VISIT CATARACT SURG W/IOL, 1 STAGE Oct [facility] Oct- OFFICE/OUTPATIENT VISIT, EST Oct OPHTHALMIC BIOMETRY Oct No Charge EYE EXAM & TREATMENT REFRACTION TOBACCO NON-USER VISUAL FIELD EXAMINATION(S) EYE EXAM & TREATMENT REFRACTION PRESCRIPTION OF CONTACT LENS Tobacco-use rehabilitation counselor 3-10 min EYE EXAM & TREATMENT REFRACTION PRESCRIPTION OF CONTACT LENS EYE EXAM & TREATMENT REFRACTION PRESCRIPTION OF CONTACT LENS EYE EXAM & TREATMENT REFRACTION PRESCRIPTION OF CONTACT LENS EYE EXAM & TREATMENT REFRACTION PRESCRIPTION OF CONTACT LENS Advance Directives Directive Yes / No Effective Date File Name No Information Encounters Encounter Description Practice Location Reason(s) For Visit Diagnoses Date Provider Providers Copied on Encounter [facility], [address], [place], [place], [id number], tel:[phone] [facility] follow-up (chief complaint) Secondary noninfectious iridocyclitis, left eye 2 Alex Azeem. [address], [place], [place], [address] . tel:[phone] [facility], [address], [facility] [place], [id number], [place] tel:[phone] [facility] IOV (chief complaint) Presence of intraocular lens Francisco-2 2 Alex Gann. [address], [place], [place], [address] . tel: [phone] [facility] [place], [address] [place], [place], [address], [place] tel:[phone] [facility] post-op (chief complaint) Presence of intraocular lens Dec-0 1 Alex Gann. [address], [place], [place], [address] . tel: [phone] [facility] [place], [address] [place], [place], [address], [place] tel:[phone] [facility] post-op (chief complaint) Presence of intraocular lens Nov-0 1 Alex Gann. [address], [place], [place], [address] . tel: [phone] [facility] [place], [address] [place], [place], [address], [place] tel:[phone] [facility] post-op (chief complaint) Presence of intraocular lens Oct-2 1 Alex Gann. [address], [place], [place], [address] . tel: [phone] [facility], [address] [place], [place], [address], [place] tel:[phone] [facility] No Information Oct-2 1 Alex Gann. [address], [place], [place], [address] . tel: [phone] [facility], [address] [place], [place], [address], [place] tel:[phone] [facility] post-op (chief complaint) Presence of intraocular lens Oct-1 1 Alex Gann. [address], [place], [place], [address] . tel: [phone] [facility], [address] [facility], [place], [place], [address], [place] tel:[phone] [facility] post-op (chief complaint) Presence of intraocular lens Oct-1 1 Alex Gann. [address], [place], [place], [address] . tel: [phone] [facility], [address] [place], [place], [address], [place] tel:[phone] [facility] No Information Oct-1 1 Alex Gann. [address], [place], [place], [address] . tel: [phone] OFFICE/OUTPAT IENT VISIT, EST [facility], [address] [place], [place], [address], [place] tel:[phone] [facility] medical eye exam (chief complaint)P re-op (chief complaint) Combined forms of age-related cataract, bilateral Oct-1 1 Alex Gann. [address], [place], [place], [address] . tel: [phone] [facility], [address] [place], [place], [address], [place] tel:[phone] [facility] medical eye exam (chief complaint) Combined forms of age-related cataract, bilateral Sep-2 0 Alex Gann. [address], [place], [place], [address] . tel: [phone] [facility], [address], [place], [place], [address], [place] tel:[phone] [facility] No Information Sep-2 -202 0 Agustina Brewster. [address], [place], [place], [address] . tel: [phone] [facility] [place], [address] [facility], [place], [place], [address], [place] [phone] [facility] No Information 3201 [address] Alex Gann. [address], [place], [place], [address] . tel: [phone] [facility], [address] [place], [address], [place] tel:[phone] [facility] medical eye exam (chief complaint) Combined forms of age-related cataract, bilateral 201 9 Alex Gann. [address], [place], [place], [address] . tel: [phone] [facility] [place], [address] [place], [place], [address], [place] [phone] [facility] medical eye exam (chief complaint) Combined forms of age-related cataract, bilateral Apr- 2-201 8 Alex Gann. [address], [place], [place], [address] . tel: [phone] [facility] [place], [address] [place], [place], [address], [place] [phone] [facility] medical eye exam (chief complaint) Combined forms of age-related cataract, bilateral Apr-2 9-201 7 Alex Gann. [address], [place], [place], [address] . tel: [phone] [facility], [address] [place], [place], [address], [place] tel:[phone] [facility] No Information 201 5 Alex Gann. [address], [place], [place], [address] . tel: [phone] [facility], [address], [facility], [place], [place], [address], [place] tel:[phone] [facility] No Information 2 Alex Gann. [address] [facility], [place], [place], [address] . tel: [phone] Family History Family Member Type Diagnosis Age At Onset Mother Problem (finding) hypertension Father Problem (finding) glaucoma Payers Payer name Insurance type Covered green party ID Authoriza tion(s) Medicare MB [id number] [facility] [id number] Social History Type Description Quantity Date Captured Comments Alcohol Use Details Caffeine Use Details Unknown Tobacco Use Status Ex-cigarette smoker 022 Smoking Status Former smoker Smoking Tobacco Use Details Cigarette: Age Stopped: 46 Cigarette: No Details Available Sex Female Chief Complaint And Reason For Visit From encounter dated '04/14/2021 13:25'. follow-up (chief complaint). Description: The 81 year old female presents for 3 week follow up on Post op iritis OS. She has no pain but her eyes are still tearing. Vision is blurry and she is extremely light sensitive. She is using Prednisolone BID and artificial tears QD. Her left upper lid is difficult to open and appears droopy. . Reason For Referral Reason For Referral No Information Plan Of Treatment Date Type Action Status Goal Tobacco cessation counseling completed Patient Education Health Information for You: MedlinePl~ completed Patient Education Health Information for You: MedlinePl~ completed History Of Present Illness Encounter Date Complaint History Of Prese nt Illness follow-up The 81 year old female presents for 3 week follow up on Post op iritis OS. She has no pain but her eyes are still tearing. Vision is blurry and she is extremely light sensitive. She is using Prednisolone BID and artificial tears QD. Her left upper lid is difficult to open and appears droopy. . Francisco-24-2022 IOV The 81 year old is in the office with complaints of blurry vision at near OS. The eye just doesn't feel right. She does not feel like the eyes are working together. The OS feels sore to the touch and is teary. She is also light sensitive and wearing sunglasses all the time helps. She is using artificial tears frequently throughout the day. post-op The 80 year old female presents for a post-op for Phaco w/PC IOL (Distance) OD and (NEAR/SNOW) OS. She feels her eyes are not focusing together well. Her eyes water constantly > OS. She is unaware of flashes, floaters, discomfort or ocular pain OU. She uses AT's, but typically only once per day in OU and she is finished course of prescription post-op eye drops. post-op The 80 year old female presents for S/P Phaco with PC IOL (NEAR) OS (12/25/2020). Patient notes moderate improvement in OS near vision since surgery. Patient denies pain, discomfort, flashes & floaters. Patient currently using Ketorolac/Prednisolone/Moxifloxacin 1 gtt QID OS. post-op The 80 year old female presents for evaluation of1 day post-op OS Phaco w/PC IOL (NEAR/SNOW). Pt reports good compliance w/ all post op gtt and the eye shield. pt denies pain or discomfort. Pt notes improvement in the vision. post-op The 80 year old female is in the office for 1 week follow up due to CEIOL OD. She is happy with vision OD but is still blurry OS. No pain or discomfort. Using gtts as directed. post-op The 80 year old female is in the office for 1 day follow up CEIOL OD. She is doing well. No pain or discomfort. Using gtts as directed. medical eye exam The 80 year old female presents for a follow up on cataracts. She has noticed her vision is blurred especially at near. She has constant tearing and she uses artificial tears once a day. She does not do lid scrubs or warm compresses. She has no flashes or floaters. Pre-op medical eye exam The 79 year old female presents today for cataract OU. She has noticed a decline in vision OD>OS. She is still wearing CTL OU. She prefers not to drive at night due to difficulty with vision. She denies floaters, flashes, ocular discomfort. medical eye exam The 78 year old female with cataracts OU presents for a 1 year 3 month CL exam. Patient complains that her near vision has decreased OU and that her eyes get tired easily. She wears SCL monovision 12 hours a day, 7 days a week and removes them most nights and replaces them daily. She denies floaters, flashes, diplopia, discomfort and difficulty with glare. medical eye exam The 77 year old female presents for yearly follow up of cataracts of both eyes. Pt says she has started having some strain of eyes when reading with current CTLs. No flashes or flaoters. No glares problems. medical eye exam The 76 year old female presents for contacts and medical eye exam. Patient has noticed vision is not as clear with contacts as it is with glasses. Patient has no discomfort or floaters. She wears monovision OD distance and OS near. Functional Status Date Functional Assessmen t No Information Instructions Date Instruction Additional Infor oli Return in 3 months iris Johnson M.D. for follow up. Related to Secondary noninfectious iridocyclitis, left eye Impression/Plan Related to Secon adriana noninfectious iridocyclitis, left eye Impression/Plan Related to Prese nce of intraocular lens Impression/Plan Related to Prese nce of intraocular lens Impression/Plan Related to Prese nce of intraocular lens Impression/Plan Related to Prese nce of intraocular lens Impression/Plan Related to Prese nce of intraocular lens Impression/Plan Related to Prese nce of intraocular lens Impression/Plan Related to Prese nce of intraocular lens Impression/Plan Related to Combi malorie forms of age-related cataract, bilateral Return in 1 year doreen Johnson M.D. for Complete Exam with Contacts. Related to Combined forms of age-related cataract, bilateral Impression/Plan Related to Combi malorie forms of age-related cataract, bilateral Return in 1 year doreen Johnson M.D. for Complete Exam with Contacts. Related to Combined forms of age-related cataract, bilateral Impression/Plan Related to Combi malorie forms of age-related cataract, bilateral Return in 1 year doreen Johnson M.D. for Complete Exam with Contacts. Related to Combined forms of age-related cataract, bilateral Impression/Plan - Prajapati rgery not indicated, will monitor. New glasses Rx was given today. Patient given update CLs today. Related to Combined forms of age-related cataract, bilateral Follow up - Return i n 1 year with Azeem Johnson M.D. for Complete Exam with Contacts. Related to Combined forms of age-related cataract, bilateral Return in 1 year doreen Johnson M.D. for Complete Exam with Contacts. Related to Combined forms of age-related cataract, bilateral Impression/Plan - Prajapati rgery not indicated, will monitor. New glasses Rx was given today. Patient given update CLs today. Related to Combined forms of age-related cataract, bilateral Follow up - Return i n 1 year with Azeem Johnson M.D. for Complete Exam with Contacts. Related to Combined forms of age-related cataract, bilateral Combined Cataract OU - Discussed diagnosis in detail with patient. Surgery not indicated, will monitor. New glasses Rx was given today. Patient given new CLs today. Related to Combined Cataract - Return in 1 year w francia Johnson M.D. for Complete Exam with Contacts. Related to Combined Cataract - Return in 1 year w francia Johnson M.D. for Complete Exam. 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 New glasses Rx was given today. Patient given new CLs today. Related to Senile nuclear sclerosis Assessments Type Assessment Date assessment Secondary noninfectious iridocyc litis, left eye impression Secondary noninfecti ous iridocyclitis, left eye: H20.042. post op iritis quiet Patient Care Teams Name Effective Dates (start - stop) Status Members No Information
--- OUTSIDE RECORDS SUMMARY | 2023-05-13 11:30 | XMS_ITS ---
Author Organization [facility] Address [address] [address] Care Team Providers Care Binding Stitcher Name Role Phone Antoine PRICE, [facility] Primary Care Provider Unavail able [facility] Dam[facility] Unavailable [phone] Maximino Haq Unavailable [phone] REASON FOR VISIT 1 YEAR F/U Medications Medication SIG (Take, Route, Frequency, Duration) Notes Start Date End Date Status Aspirin 81 MG Tablet Chewable 1 tablet Orally twice a week Active Vitamin B12 1000 MCG Tablet Extended Release 1 tablet Orally Once a day; Duration: 30 day(s) Active Albuterol Sulfate HFA 108 (90 Base) MCG/ACT Aerosol Solution 1 puff as needed Inhalation every 4 hrs as needed Active Vitamin D3 50 MCG (2000 UT) Capsule 1 capsule Orally Once a day; Duration: 30 day(s) Active Multivitamin - Tablet 1 tablet Orally On a day; Duration: 30 day(s) Active Breo Ellipta 200-25 MCG/ACT Aerosol Powder Breath Activated 1 puff Inhalation Once a day Active CeleBREX 200 MG Capsule 1 capsule with f ood Orally Once a day; Duration: 30 day(s) Active amLODIPine Besylate 2.5 MG Tablet 1 tablet Orally twice a day Active FLUoxetine HCl 40 MG Capsule 1 capsule Orally Once a day; Duration: 30 day(s) Active Vascepa 1 GM Capsule 2 capsules with eneida ls Orally Twice a day; Duration: 30 day(s) Active Minivelle 0.0375 MG/24HR Patch Twice Weekly 1 patch to skin Transdermal Two times a Week; Duration: 30 day(s) Active Metoprolol Succinate ER 50 MG Tablet Extended Release 24 Hour 1 tablet Orally Once a day; Duration: 30 day(s) Active Culturelle - Capsule as directed Orally Active Andrei-Mag Active Lipitor 40 MG Tablet 1 tablet Orally Onc e a day; Duration: 90 days Active Biotin 5000 MCG Tablet 1 tablet Orally O nce a day; Duration: 30 day(s) Active Problems Problem Type SNOMED Code ICD Code Onset Dates Problem Status W/U Status Risk Notes Problem Atherosclerosis of coronary artery of twenty-nine palms heart without angina pectoris, unspecified vessel or lesion type (I25.10) Active confirmed Problem Venous insufficiency of leg (disorder) (223505499) Venous insufficiency (I87.2) Active confirmed Vital Signs Temperature 97.5 degrees Fahrenheit 05/13/19 24 Blood pressure systolic 138 mm Hg 05/13/19 24 Blood pressure diastolic 64 mm Hg 024 Heart Rate 62 /min 05/13/2023 Respiratory Rate 18 /min 05/13/2023 Height 5 ft 3 in in 05/13/2023 Weight 115 lbs 05/13/2023 BMI 20.37 kg/m2 05/13/2023 Oximetry 97 % 05/13/2023 Encounters Encounter Location Date Provider Diagnosis [facility] [address] [address] 05/13/2023 Maximino Haq Abnormal ECG R94.31 ; Atherosclerosis of coronary artery of twenty-nine palms heart without angina pectoris, unspecified vessel or lesion type I25.10 ; Abnormal cardiovascular stress test R94.39 ; Dyspnea on exertion R06.09 and Venous insufficiency I87.2 Assessments Encounter Date Diagnosis (ICD Code) Assessment Notes Treatment Notes Treatment Clinical Notes Section Notes 05/13/2023 Abnormal ECG (ICD-10 - R94.31) 05/13/2023 Atherosclerosis of coronary artery of twenty-nine palms heart without angina pectoris, unspecified vessel or lesion type (ICD-10 - I25.10) 05/13/2023 Abnormal cardiovascular stress test (ICD-10 - R94.39) 05/13/2023 Dyspnea on exertion (ICD-10 - R06.09) 05/13/2023 Venous insufficiency (ICD-10 - I87.2) 05/13/2023 Other The patient is doing well from a cardiovascular perspective. We will continue with guideline-directe d medical therapy with non-obstructive CAD. In addition, we will also obtain lower extremity arterial Dopplers as well as venous reflux studies given her possible venous insufficiency, varicose veins, and edema. Plan Of Treatment Treatment Notes Assessment Notes Other The patient is doing well from a cardiovascular perspective. We will continue with guideline-directed medical therapy with non-obstructive CAD. In addition, we will also obtain lower extremity arterial Dopplers as well as venous reflux studies given her possible venous insufficiency, varicose veins, and edema. History and Physical Notes * HPI (History of Present Illness) Category Sub-Category Detail Notes Category Not es History/Subjective The patient is an 81-year-old female with history of CAD, carotid stenosis, mitral insufficiency, hypertension, dyslipidemia, had a recent coronary CTA done that showed calcium score 700 mostly in the LAD. Does have some exertional dyspnea with no chest pain. Has not had ischemic evaluation. 05/04/2022-The patient is presenting for a follow up visit to go over her nuclear stress test which she has got after having severely elevated calcium score. Nuclear stress test demonstrated moderate sized mild degree anterior reversible defect. Echocardiogram also demonstrated preserved ejection fraction without significant valvular abnormalities and carotid ultrasound demonstrated mild plaque bilaterally. The patient also mentions that she was recently diagnosed with Graves disease. 05/13/2023 - The patient is coming in for a followup visit. Between now and her last visit, she had a cardiac catheterization that was non-obstructive. She did have a diagonal lesion approximately 70% to 80% but with small and distal, left to be treated medically. She also has 50% ramus intermedius lesion. The patient is otherwise doing well from a cardiovascular perspective at this time. She does mention that she has trace lower extremity edema with varicose veins. Examination Category Sub-Category Detail Notes Category Not es General Examination GENERAL APPEARANCE: in no ac arcadio distress, well developed, well nourished On exam, there is a 2/6 systolic murmur. HEAD: normocephalic, atrau matic EYES: pupils equal, round, reactive to light and accommodation EARS: normal THROAT: clear NECK/THYROID: neck supple, full ra nge of motion, no cervical lymphadenopathy HEART: no murmurs, regular rate and rhythm, S1, S2 normal LUNGS: clear to auscultatio n bilaterally ABDOMEN: normal, bowel sounds present, soft, nontender, nondistended NEUROLOGIC: nonfocal, motor stre ngth normal upper and lower extremities, sensory exam intact SKIN: no suspicious lesion s, warm and dry EXTREMITIES: no clubbing, cyanosi s, or edema ORAL CAVITY: mucosa moist Progress Notes * Fozia PEREZneDOB:1940 (84 yo F)Acc No.[id number]:05/13/2023 Progress Notes Patient: Litzy Finch Provider: Iglesia Haq DO :1940 A ge:83 Y S ex:Female Date:05/13/2023 Address:[address] [place], [place] [id number] Pcp:Kaushal Schultz MD Subjective: * Chief Complaints: * 1 YEAR F/U * HPI: H istory/Subjective: The patient is an 81-year-old female with history of CAD, carotid stenosis, mitral insufficiency, hypertension, dyslipidemia, had a recent coronary CTA done that showed calcium score 700 mostly in the LAD. Does have some exertional dyspnea with no chest pain. Has not had ischemic evaluation. 05/04/2022-The patient is presenting for a follow up visit to go over her nuclear stress test which she has got after having severely elevated calcium score. Nuclear stress test demonstrated moderate sized mild degree anterior reversible defect. Echocardiogram also demonstrated preserved ejection fraction without significant valvular abnormalities and carotid ultrasound demonstrated mild plaque bilaterally. The patient also mentions that she was recently diagnosed with Graves disease. 05/13/2023 - The patient is coming in for a followup visit. Between now and her last visit, she had a cardiac catheterization that was non-obstructive. She did have a diagonal lesion approximately 70% to 80% but with small and distal, left to be treated medically. She also has 50% ramus intermedius lesion. The patient is otherwise doing well from a cardiovascular perspective at this time. She does mention that she has trace lower extremity edema with varicose veins. * Medications: T akingMetoprolol Succinate ER 50 MG Tablet Extended Release 24 Hour 1 tablet Orally Once a day Minivelle 0.0375 MG/24HR Patch Twice Weekly 1 patch to skin Transdermal Two times a Week amLODIPine Besylate 2.5 MG Tablet 1 tablet Orally twice a day CeleBREX 200 MG Capsule 1 capsule with food Orally Once a day Vascepa 1 GM Capsule 2 capsules with meals Orally Twice a day FLUoxetine HCl 40 MG Capsule 1 capsule Orally Once a day Breo Ellipta 200-25 MCG/ACT Aerosol Powder Breath Activated 1 puff Inhalation Once a day Albuterol Sulfate HFA 108 (90 Base) MCG/ACT Aerosol Solution 1 puff as needed Inhalation every 4 hrs , Notes to Pharmacist: as neededMultivitamin - Tablet 1 tablet Orally Once a day Vitamin D3 50 MCG (1999 UT) Capsule 1 capsule Orally Once a day Vitamin B12 1000 MCG Tablet Extended Release 1 tablet Orally Once a day Aspirin 81 MG Tablet Chewable 1 tablet Orally twice a week Biotin 5000 MCG Tablet 1 tablet Orally Once a day Andrei-Mag Culturelle - Capsule as directed Orally Lipitor 40 MG Tablet 1 tablet Orally Once a day Medication List reviewed and reconciled with the patientTaking Metoprolol Succinate ER 50 MG Tablet Extended Release 24 Hour 1 tablet Orally Once a day Taking Minivelle 0.0375 MG/24HR Patch Twice Weekly 1 patch to skin Transdermal Two times a Week Taking amLODIPine Besylate 2.5 MG Tablet 1 tablet Orally twice a day Taking CeleBREX 200 MG Capsule 1 capsule with food Orally Once a day Taking Vascepa 1 GM Capsule 2 capsules with meals Orally Twice a day Taking FLUoxetine HCl 40 MG Capsule 1 capsule Orally Once a day Taking Breo Ellipta 200-25 MCG/ACT Aerosol Powder Breath Activated 1 puff Inhalation Once a day Taking Albuterol Sulfate HFA 108 (90 Base) MCG/ACT Aerosol Solution 1 puff as needed Inhalation every 4 hrs , Notes to Pharmacist: as neededTaking Multivitamin - Tablet 1 tablet Orally Once a day Taking Vitamin D3 50 MCG (1999 UT) Capsule 1 capsule Orally Once a day Taking Vitamin B12 1000 MCG Tablet Extended Release 1 tablet Orally Once a day Taking Aspirin 81 MG Tablet Chewable 1 tablet Orally twice a week Taking Biotin 5000 MCG Tablet 1 tablet Orally Once a day Taking Andrei-Mag Taking Culturelle - Capsule as directed Orally Taking Lipitor 40 MG Tablet 1 tablet Orally Once a day Medication List reviewed and reconciled with the patient Objective: * Vitals: T emp:97.5F, HR:62/min, BP:138/64mm Hg, Wt:115lbs, BMI:20.37Index, Ht:5 ft 3 in, RR:18/min, Oxygen sat %:97%, Ht-cm:160.02cm, Wt-k.16kg. * Examination: G eneral Examination: GENERAL APPEARANCE: i n no acute distress, well developed, well nourished. HEAD: n ormocephalic, atraumatic. EYES: p upils equal, round, reactive to light and accommodation. EARS: n ormal. ORAL CAVITY: m ucosa moist. THROAT: c lear. NECK/THYROID: n tian supple, full range of motion, no cervical lymphadenopathy. SKIN: n o suspicious lesions, warm and dry. HEART: n o murmurs, regular rate and rhythm, S1, S2 normal.? LUNGS: c lear to auscultation bilaterally. ABDOMEN: n ormal, bowel sounds present, soft, nontender, nondistended. EXTREMITIES: n o clubbing, cyanosis, or edema. NEUROLOGIC: n onfocal, motor strength normal upper and lower extremities, sensory exam intact. O n exam, there is a 2/6 systolic murmur. Assessment: * Assessment: 1. A therosclerosis of coronary artery of twenty-nine palms heart without angina pectoris, unspecified vessel or lesion type - I25.10 (Primary) 2 . A bnormal ECG - R94.31 ?3. A bnormal cardiovascular stress test - R94.39 4 . D yspnea on exertion - R06.09 5 . V enous insufficiency - I87.2 Plan: * Treatment: * Electronic signature of Maximino Haq DO on 10/26/2024 at 07:23 PM EDT Sign off status: Pending * Provider: Iglesia Haq DO Date: 0 05/13/2023 Generated for Vilma prajapati/Sabina/eTrosalinaitting on: 0 10/26/2024 07:23 PM EDT
--- OUTSIDE RECORDS SUMMARY | 2023-07-15 05:45 | XMS_ITS ---
Author Organization [facility] Address [address] [address] Care Team Providers Care Sprinkler Driver Name Role Phone Antoine PRICE, [facility] Primary Care Provider Unavail able Isabella Damon Unavailable [phone] Jerod Laguna Unavailable [phone] REASON FOR VISIT lower extremity ultrasound Medications Medication SIG (Take, Route, Frequency, Duration) Notes Start Date End Date Status Lipitor 40 MG Tablet 1 tablet Orally Onc e a day; Duration: 90 days Active CeleBREX 200 MG Capsule 1 capsule with f ood Orally Once a day; Duration: 30 day(s) Active Culturelle - Capsule as directed Orally Active Vascepa 1 GM Capsule 2 capsules with eneida ls Orally Twice a day; Duration: 30 day(s) Active FLUoxetine HCl 40 MG Capsule 1 capsule Orally Once a day; Duration: 30 day(s) Active Andrei-Mag Active amLODIPine Besylate 2.5 MG Tablet 1 tablet Orally twice a day Active Aspirin 81 MG Tablet Chewable 1 tablet Orally twice a week Active Biotin 5000 MCG Tablet 1 tablet Orally O nce a day; Duration: 30 day(s) Active Minivelle 0.0375 MG/24HR Patch Twice Weekly 1 patch to skin Transdermal Two times a Week; Duration: 30 day(s) Active Vitamin D3 50 MCG (2000 UT) Capsule 1 capsule Orally Once a day; Duration: 30 day(s) Active Metoprolol Succinate ER 50 MG Tablet Extended Release 24 Hour 1 tablet Orally Once a day; Duration: 30 day(s) Active Albuterol Sulfate HFA 108 (90 Base) MCG/ACT Aerosol Solution 1 puff as needed Inhalation every 4 hrs as needed Active Multivitamin - Tablet 1 tablet Orally On ce a day; Duration: 30 day(s) Active Vitamin B12 1000 MCG Tablet Extended Release 1 tablet Orally Once a day; Duration: 30 day(s) Active Breo Ellipta 200-25 MCG/ACT Aerosol Powder Breath Activated 1 puff Inhalation Once a day Active Encounters Encounter Location Date Provider Diagnosis [facility] [address] [address] 07/15/2023 Jerod Laguna 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.213 Assessments Encounter Date Diagnosis (ICD Code) Assessment Notes Treatment Notes Treatment Clinical Notes Section Notes 07/15/2023 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 (ICD-10 - I70.213) Plan Of Treatment No Information Progress Notes * Vania PEREZOB:1940 (84 yo F)Acc No.[id number]:07/15/2023 Progress Note Patient: Sylvia serrano Litzy Provider: Jb Laguna MD :1940 A ge:83 Y S ex:Female Date:07/15/2023 Address:[address] [place], [place] [id number] Pcp:Kaushal Schultz MD Subjective: * Chief Complaints: * L ower extremity ultrasound * Medications: T akingMetoprolol Succinate ER 50 [...] Once a day Vitamin D3 50 MCG (2000 UT) Capsule [...] 1 tablet Orally Once a day Taking Metoprolol Succinate ER 50 MG Tablet Extended [...] a day Taking Vitamin D3 50 MCG (2000 UT) Capsule [...] Tablet 1 tablet Orally Once a day Assessment: * Assessment: 1. A therosclerosis of saxman artery of both lower extremities with intermittent claudication - I70.213 (Primary) Plan: * Procedure Codes: 9 3925 LOWER EXTREMITY STUDY Billing Information: * Procedure Codes: 73898 LOWER EXTREMITY STUDY. * Electronic signature of Con Laguna on 10/26/2024 at 07:23 PM EDT Sign off status: Pending * Provider: Jb Laguna MD Date: 0 07/15/2023 Generated for Vilma prajapati/Sabina/Beti on: 0 10/26/2024 07:23 PM EDT
--- OUTSIDE RECORDS SUMMARY | 2023-07-28 08:00 | XMS_ITS ---
Author Organization [facility] Address [address] [address] Care Team Providers Care Explosive Operator Grenade Name Role Phone Kaushal Schultz MD Primary Care Provider Unavail Isabella Arevalo [phone] REASON FOR VISIT VENOUS REFLUX DX: VENOUS INSUFFICIENT Encounters Encounter Location Date Provider Diagnosis [facility] [address] [address] 07/28/2023 Isabella Damon Venous insufficiency I87.2 Assessments Encounter Date Diagnosis (ICD Code) Assessment Notes Treatment Notes Treatment Clinical Notes Section Notes 07/28/2023 Venous insufficiency (ICD-10 - I87.2) Plan Of Treatment No Information Progress Notes * Fozia PEREZLewisOB:1940 (84 yo F)Acc No.[id number]:07/28/2023 Progress Note Patient: Litzy Finch Provider: Iglesia Damon M.D. :1940 A ge:83 Y S ex:Female Date:07/28/2023 Address:[address] Pcp:Kaushal Schultz MD Subjective: * Chief Complaints: * V ENOUS REFLUX DX: VENOUS INSUFFICIENT Assessment: * Assessment: 1. V enous insufficiency - I87.2 (Primary) Plan: * Procedure Codes: 9 3970 EXTREMITY STUDY Billing Information: * Procedure Codes: 25425 EXTREMITY STUDY. * Electronic signature of Isabella Damon MD on 10/26/2024 at 07:22 PM EDT Sign off status: Pending * Provider: Iglesia Damon M.D. Date: 0 07/28/2023 Generated for Vilma prajapati/Sabina/Beti on: 0 10/26/2024 07:22 PM EDT
--- OUTSIDE RECORDS SUMMARY | 2023-08-03 10:00 | XMS_ITS ---
Author Organization [facility], P A Address [address] [address] Care Team Providers Care Supervisor Felling Bucking Name Role Phone Antoine PRICE, [facility] Primary Care Provider Unavail able Isabella Damon Unavailable [phone] Maximino Haq Unavailable [phone] REASON FOR VISIT 1 month f/u test results Medications Medication SIG (Take, Route, Frequency, Duration) Notes Start Date End Date Status Andrei-Mag Active Culturelle - Capsule as directed Orally Active Lipitor 40 MG Tablet 1 tablet Orally Onc e a day; Duration: 90 days Active Aspirin 81 MG Tablet Chewable 1 tablet Orally twice a week Active Biotin 5000 MCG Tablet 1 tablet Orally O nce a day; Duration: 30 day(s) Active Multivitamin - Tablet 1 tablet Orally On ce a day; Duration: 30 day(s) Active Breo Ellipta 200-25 MCG/ACT Aerosol Powder Breath Activated 1 puff Inhalation Once a day Active Albuterol Sulfate HFA 108 (90 Base) MCG/ACT Aerosol Solution 1 puff as needed Inhalation every 4 hrs as needed Active Vitamin D3 50 MCG (2000 UT) Capsule 1 capsule Orally Once a day; Duration: 30 day(s) Active Vitamin B12 1000 MCG Tablet Extended Release 1 tablet Orally Once a day; Duration: 30 day(s) Active amLODIPine Besylate 2.5 MG Tablet 1 tablet Orally twice a day Active CeleBREX 200 MG Capsule 1 capsule with f ood Orally Once a day; Duration: 30 day(s) Active Vascepa 1 GM Capsule 2 capsules with eneida ls Orally Twice a day; Duration: 30 day(s) Active FLUoxetine HCl 40 MG Capsule 1 capsule Orally Once a day; Duration: 30 day(s) Active Minivelle 0.0375 MG/24HR Patch Twice Weekly 1 patch to skin Transdermal Two times a Week; Duration: 30 day(s) Active Metoprolol Succinate ER 50 MG Tablet Extended Release 24 Hour 1 tablet Orally Once a day; Duration: 30 day(s) Active Problems Problem Type SNOMED Code ICD Code Onset Dates Problem Status W/U Status Risk Notes Problem Mixed hyperlipidemia (425308858) Hyperlipid emia, mixed (E78.2) Active confirmed Vital Signs Temperature 97.5 degrees Fahrenheit 08/03/19 24 Blood pressure systolic 130 mm Hg 08/03/19 24 Blood pressure diastolic 70 mm Hg 024 Heart Rate 83 /min 08/03/2023 Respiratory Rate 18 /min 08/03/2023 Height 5 ft 3 in in 08/03/2023 Weight 119 lbs 08/03/2023 BMI 21.08 kg/m2 08/03/2023 Oximetry 93 % 08/03/2023 Encounters Encounter Location Date Provider Diagnosis [facility] [address] [address] 08/03/2023 Maximino Haq Abnormal ECG R94.31 ; Atherosclerosis of coronary artery of [place] heart without angina pectoris, unspecified vessel or lesion type I25.10 ; Abnormal cardiovascular stress test R94.39 ; Dyspnea on exertion R06.09 ; Venous insufficiency I87.2 and Hyperlipidemia, mixed E78.2 Assessments Encounter Date Diagnosis (ICD Code) Assessment Notes Treatment Notes Treatment Clinical Notes Section Notes 08/03/2023 Abnormal ECG (ICD-10 - R94.31) 08/03/2023 Atherosclerosis of coronary artery of [place] heart without angina pectoris, unspecified vessel or lesion type (ICD-10 - I25.10) 08/03/2023 Abnormal cardiovascular stress test (ICD-10 - R94.39) 08/03/2023 Dyspnea on exertion (ICD-10 - R06.09) 08/03/2023 Venous insufficiency (ICD-10 - I87.2) 08/03/2023 Hyperlipidemia, mixed (ICD-10 - E78.2) 08/03/2023 Other 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 She is doing well at this time. I did have an extensive conversation with her regarding her lower extremity venous reflux studies; however, given the fact that her symptoms have improved we will proceed with conservative therapy including compression stockings at this time. We will consider radiofrequency ablation and scleratherapy if her symptoms return. Otherwise, we will obtain repeat lipid profile prior to next visit to further assess her cholesterol panel. 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 She is doing well at this time. I did have an extensive conversation with her regarding her lower extremity venous reflux studies; however, given the fact that her symptoms have improved we will proceed with conservative therapy including compression stockings at this time. We will consider radiofrequency ablation and scleratherapy if her symptoms return. Otherwise, we will obtain repeat lipid profile prior to next visit to further assess her cholesterol panel. History and Physical Notes * HPI (History [...] trace lower extremity edema with varicose veins. 08/03/2023 - The patient is coming in to follow up on lower extremity arterial Dopplers as well as lower extremity venous reflux. Lower extremity arterial Dopplers were negative for obstructive disease; however, the venous reflux was suggestive of bilateral reflux disease. The patient does mention that her cramping has improved and it is only at nighttime, while resting she feels cramping. Otherwise, she is doing well from a cardiovascular perspective without episodes of chest pain or shortness of breath. Blood pressure and heart rate are well controlled at this time. Examination Category Sub-Category Detail Notes Category Not es General Examination GENERAL APPEARANCE: in no ac squaxin distress, well developed, well nourished , in no acute distress, well developed, well nourished On exam, there is a 2/6 systolic murmur. On exam, there is a 2/6 systolic murmur. HEAD: normocephalic, atrau matic , normocephalic, atraumatic EYES: pupils equal, round, reactive to light and accommodation , pupils equal, round, reactive to light and accommodation EARS: normal , normal THROAT: clear , clear NECK/THYROID: neck supple, full ra nge of motion, no cervical lymphadenopathy , neck supple, full range of motion, no cervical lymphadenopathy HEART: no murmurs, regular rate and rhythm, S1, S2 normal , no murmurs, regular rate and rhythm, S1, S2 normal LUNGS: clear to auscultatio n bilaterally , clear to auscultation bilaterally ABDOMEN: normal, bowel sounds present, soft, nontender, nondistended , normal, bowel sounds present, soft, nontender, nondistended NEUROLOGIC: nonfocal, motor stre ngth normal upper and lower extremities, sensory exam intact , nonfocal, motor strength normal upper and lower extremities, sensory exam intact SKIN: no suspicious lesion s, warm and dry , no suspicious lesions, warm and dry EXTREMITIES: no clubbing, cyanosi s, or edema , no clubbing, cyanosis, or edema ORAL CAVITY: mucosa moist , mucos a moist Progress Notes * LEEANNEFozianeDOB:1940 (84 yo F)Acc No.[id number]:08/03/2023 Progress Notes Patient: Litzy Finch Provider: Iglesia Haq, :1940 A ge:83 Y S ex:Female Date:08/03/2023 Address:[address] [place] [address], [facility] [place] Pcp:Kaushal Schultz MD Subjective: * Chief Complaints: * 1 month f/u test results * HPI: H istory/Subjective: The patient is [...] trace lower extremity edema with varicose veins. 08/03/2023 - The patient is coming in to follow up on lower extremity arterial Dopplers as well as lower extremity venous reflux. Lower extremity arterial Dopplers were negative for obstructive disease; however, the venous reflux was suggestive of bilateral reflux disease. The patient does mention that her cramping has improved and it is only at nighttime, while resting she feels cramping. Otherwise, she is doing well from a cardiovascular perspective without episodes of chest pain or shortness of breath. Blood pressure and heart rate are well controlled at this time. * Medications: T akingMetoprolol Succinate ER 50 [...] the patient Objective: * Vitals: T emp:97.5F, HR:83/min, BP:130/70mm Hg, Wt:119lbs, BMI:21.08Index, Ht:5 ft 3 in, RR:18/min, Oxygen sat %:93%, Ht-cm:160.02cm, Wt-k.98kg. * Examination: G eneral Examination: GENERAL APPEARANCE: i n no acute distress, well developed, well nourished , in no acute distress, well developed, well nourished. HEAD: n ormocephalic, atraumatic , normocephalic, atraumatic. EYES: p upils equal, round, reactive to light and accommodation , pupils equal, round, reactive to light and accommodation. EARS: n ormal , normal. ORAL CAVITY: m ucosa moist , mucosa moist. THROAT: c lear , clear. NECK/THYROID: n tian supple, full range of motion, no cervical lymphadenopathy , neck supple, full range of motion, no cervical lymphadenopathy. SKIN: n o suspicious lesions, warm and dry , no suspicious lesions, warm and dry. HEART: n o murmurs, regular rate and rhythm, S1, S2 normal , no murmurs, regular rate and rhythm, S1, S2 normal. LUNGS: c lear to auscultation bilaterally , clear to auscultation bilaterally. ABDOMEN: n ormal, bowel sounds present, soft, nontender, nondistended , normal, bowel sounds present, soft, nontender, nondistended. EXTREMITIES: n o clubbing, cyanosis, or edema , no clubbing, cyanosis, or edema. NEUROLOGIC: n onfocal, motor strength normal upper and lower extremities, sensory exam intact , nonfocal, motor strength normal upper and lower extremities, sensory exam intact. O n exam, there is a 2/6 systolic murmur. On exam, there is a 2/6 systolic murmur. Assessment: * Assessment: 1. A therosclerosis of coronary artery of [place] heart without angina pectoris, unspecified vessel or lesion type - I25.10 (Primary) 2 . A bnormal ECG - R94.31 ?3. A bnormal cardiovascular stress test - R94.39 4 . D yspnea on exertion - R06.09 5 . V enous insufficiency - I87.2 6 . H yperlipidemia, mixed - E78.2 Plan: * Treatment: * Electronic signature of Maximino Haq DO on 10/26/2024 at 07:23 PM EDT Sign off status: Pending * Provider: Iglesia Haq, Date: 0 08/03/2023 Generated for Vilma prajapati/Sabina/eTrosalinaitting on: 0 10/26/2024 07:23 PM EDT
--- OUTSIDE RECORDS SUMMARY | 2023-09-09 09:15 | XMS_ITS ---
Author Organization [facility] [place] Address [address] [place] [address] Care Team Providers Care Clerical Methods Analyst Name Role Phone RAYNA KRISHNA Primary Care Provider ROSE Felder Unavailable [phone] Encounters Encounter Location Date Provider [place] [facility] [place] [place] [address] [place] [address] 09/09/2023 ROSE POWERS Plan Of Treatment No Information Progress Notes * Fozia PEREZLewisOB:1940 (84 yo F)Acc No.[id number]:09/09/2023 Patient: Litzy BAUM Provider: Jb Powers M.D. :1940 A ge:83 Y S ex:Female Date:09/09/2023 Address:[address] [place] [address] Ave, [address] [place], [place] [id number] Pcp:RAYNA KRISHNA Subjective: * Chief Complaints: * * Medical History: Objective: * Vitals: Assessment: Plan: * Treatment: * * Electronic signature of ASH POWERS MD on 10/26/2024 at 07:24 PM EDT Sign off status: Pending * Provider: Jb Powers M.D. Date: 0 09/09/2023 Generated for Vilma prajapati/Sabina/eTanthonysmitting on: 0 10/26/2024 07:24 PM EDT
--- OUTSIDE RECORDS SUMMARY | 2024-04-22 16:00 | XMS_ITS ---
Author Organization [facility] [place] Address [address] [place] [address] Care Team Providers Care Window Assembler Name Role Phone ISATURAYNA LINARES Primary Care Provider UnavailROSE Carlson Unavailable [phone] Migration, Provider Unavailable Unavailable [facility] VISIT [facility] Encounter Medications Medication SIG (Take, Route, Frequency, Duration) Notes Start Date End Date Status FLUoxetine HCl 40 MG 1 cap(s) orally onc e a day Active CeleBREX 200 MG 1 cap(s) orally once a day Active Losartan Potassium-HCTZ 100-25 MG 1 tab(s) orally once a day Active Synthroid 25 MCG 1 tab(s) orally once a day for 90 days Active Metoprolol Succinate ER 50 MG 1 tab(s) orally once a day Active B-12 1000 MCG 1 tab(s) orally once a day Active Breo Ellipta 200 MCG-25 MCG/INH 1 PUFF(S) INHALED ONCE A DAY *Please review and pick correct strength-formulati on from Medispan options. If intended option is not shown, discontinue and re-order from Quick Search* Active Atorvastatin Calcium 40 MG 1 tab(s) orally once a day Active Vascepa 1 GM 2 cap(s) orally once a day Active Aspirin 81 MG 1 tab(s) orally once a day Active ALBUTEROL (EQV-PROVENTIL HFA) 90 MCG/INH 2 PUFF(S) INHALED EVERY 6 HOURS *Please review for potential replacement for e-prescription and drug interaction check* Active Biotin 5 MG 1 tab(s) orally once a day Active Minivelle 0.0375 MG/24 HOURS TWICE WEEKLY 1 PATCH TRANSDERMALLY 2 TIMES A WEEK *Please review and pick correct strength-formulati on from AccurIC options. If intended option is not shown, discontinue and re-order from Quick Search* Active amLODIPine Besylate 2.5 MG 2 orally once a day Active Encounters Encounter Location Date Provider [place] [facility] [place] [place] [address] [place] [address] 04/22/2024 Provider Migration Plan Of Treatment Medication Medication Name Sig Start Date Stop Date Notes FLUoxetine HCl 40 MG 1 cap(s) orally onc e a day CeleBREX 200 MG 1 cap(s) orally once a day Losartan Potassium-HCTZ 100-25 MG 1 tab(s) orally once a day Synthroid 25 MCG 1 tab(s) orally once a day for 90 days Metoprolol Succinate ER 50 MG 1 tab(s) orally once a day B-12 1000 MCG 1 tab(s) orally once a day Breo Ellipta 200 MCG-25 MCG/INH 1 PUFF(S) INHALED ONCE A DAY *Please review and pick correct strength-formulation from AccurIC options. If intended option is not shown, discontinue and re-order from Quick Search* Atorvastatin Calcium 40 MG 1 tab(s) orally once a day Vascepa 1 GM 2 cap(s) orally once a day ALBUTEROL (EQV-PROVENTIL HFA) 90 MCG/INH 2 PUFF(S) INHALED EVERY 6 HOURS *Please review for potential replacement for e-prescription and drug interaction check* Biotin 5 MG 1 tab(s) orally once a day Minivelle 0.0375 MG/24 HOURS TWICE WEEKLY 1 PATCH TRANSDERMALLY 2 TIMES A WEEK *Please review and pick correct strength-formulation from AccurIC options. If intended option is not shown, discontinue and re-order from Quick Search* amLODIPine Besylate 2.5 MG 2 orally once a day Progress Notes * Vania PEREZOB:1940 (84 yo F)Acc No.[id number]:04/22/2024 Patient: Litzy BAUM Provider: :1940 A ge:84 Y S ex:Female Date:04/22/2024 Address:[address] [place] [address], [address] [place], [place] [id number] Pcp:RAYNA KRISHNA Subjective: * Chief Complaints: * 1 . Multum To [facility] Conversion Encounter. * Medical History: * Medications: T aking Aspirin 81 MG Tablet Delayed Release 1 tab(s) orally once a day Objective: * Vitals: Assessment: Plan: * Treatment: * * Electronic signature of Prov ider Migration on 10/26/2024 at 07:24 PM EDT Sign off status: Pending * Provider: Date: 0 04/22/2024 Generated for Vilma prajapati/Sabina/Staceyitting on: 0 10/26/2024 07:24 PM EDT
--- OUTSIDE RECORDS SUMMARY | 2024-10-26 18:22 | XMS_ITS | Clinical Summary ---
Author Organization [facility] Address [address] [place] [address] Care Team Providers Care Burning Supervisor Name Role Phone Halie Cope M.D. Primary Care Provider [phone] Source Comments Patient records contain information from all sites at [facility]. For routine questions regarding patient records, call [phone] during business hours, M-F 8:00 AM - 5:00 PM Central Time. Record requests for emergency care only can be directed to [phone] at any time.[facility] Allergies No known active allergies Medications albuterol 90 mcg/actuation inhaler Inhale. 4 Active benzonatate (Tessalon) 200 mg capsule TAKE 1 CAPSULE BY MOUTH TWICE A DAY NEEDED FOR COUGH Active cholecalciferol , vitamin D3, 25 mcg (1,000 Unit) tablet Take 1,000 Units by mouth. Active cyanocobalamin (Vitamin B-12) 500 mcg tablet Take 500 mcg by mouth. Active Minivelle 0.0375 mg/24 hr patch Apply 1 patch twice a week by transdermal route. Active fluticasone furoate-vilante roL (Breo Ellipta) 200-25 mcg/act inhaler Inhale 1 puff daily. 4 Active Vascepa 1 gram capsule capsule TAKE ONE CAPSULE BY MOUTH TWICE A DAY WITH A MEAL Active traZODone (DesyreL) 50 mg tablet TAKE 1/2 TABLET BY MOUTH EVERY DAY AT BEDTIME NEEDED FOR INSOMNIA 5 Active atorvastatin (Lipitor) 40 mg tablet Take 1 tablet (40 mg total) by mouth daily. 90 tablet 3 5 Active albuterol 2.5 mg/0.5 mL nebulizer solution INHALE 0.5 ML (1 VIAL) BY NEBULIZATION EVERY 4 HOURS NEEDED FOR WHEEZING OR SHORTNESS OF BREATH. 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 3 mL 11 5 Active celecoxib (CeleBREX) 200 mg capsule Take 1 capsule (200 mg total) by mouth daily as needed for pain. 90 capsule 3 5 Active aspirin [address] tablet TAKE ONE TABLET BY MOUTH ONE TIME DAILY 90 tablet 1 5 Active Additional Information Patient taking differently:81 mg oral Daily,Taking 3 times a week, Reported on 08/18/2024 levothyroxine (Synthroid) 25 mcg tablet TAKE 1 TABLET BY MOUTH EVERY MORNING 90 tablet 5 Active Encounters Date Type Department Care Team Description 10/16/2024 Clinical Communication Department of Family Medicine, [facility], in [address] [address] Halie Cope M.D. 09/15/2024 Refill Department of [facility], [facility], in [address] [address] Halie Cope M.D. Med Refill 09/08/2024 Orders Only Department of Otorhinolaryngology in [place], [place] [address] [place] [address] Mahin Morrissey APRN, C.N.P., M.S.N. 09/08/2024 Clinical Communication Department of Ophthalmology in [place], [place] [address] [place] [address] Gifty Larsen M.D. Pre-visit Testing Orders 08/25/2024 Results Follow-Up Department of [facility], [facility], in [address] [address] Rosalba Quiroz L.P.N. DX Lumbar Spine 2-3 Views 08/22/2024 2:00 PM CDT - 08/22/2024 11:59 PM CDT Hospital Encounter Department of Radiology in [address] [address] Halie Cope M.D. Pain Low Back Unspecified Discharge Disposition: Home or Self Care 08/21/2024 Orders Only Department of [facility], [facility], in [address] [address] Halie Cope M.D. Pain Low Back Unspecified (Primary Dx) 08/21/2024 Clinical Communication Department of [facility], [facility], in [address] [address] Elsewhere, Pcp 08/18/2024 2:20 PM CDT Office Visit Department of [facility], in [address] [address] Halie Cope M.D. Pain Leg Right (Primary Dx); Pain Low Back Unspecified; Varicose Vein Lower Extremity Bilateral; Dependent Relative Needing Care At Home 08/14/2024 Refill Department of [facility], [facility], in [address] [address] Halie Cope M.D. Med Refill 08/10/2024 Refill Department of Family [facility], [facility], in [address] [address] Halie Cope M.D. Med Refill from Last 3 Months Immunizations Immunization Administration [...] of 65 years was a heavy drinker. [facility] Utilities Answer Date Recorded In the past 12 months has [employer] electric, gas, oil, or water company threatened [...] your living situation today? 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 [address] [place] [phone] 12/11/2024 10:15 AM CDT Clinical Communication Virtual Review in [place], [place] [address] [place] [phone] 12/12/2024 7:00 AM CDT Appointment Department of Laboratory Medicine and Pathology, [facility], in [place], [place] [address] [place] [phone] Gifty Larsen M.D. [address] [place] [phone] 12/12/2024 8:00 AM CDT Comprehensive Visit Division of Endocrinology in [place], [place] [address] [place] [phone] Hakeem Hearn M.D. [address] [place] [phone] 12/12/2024 9:30 AM CDT Comprehensive Visit Department of Ophthalmology in [place], [place] [address] [place] [address] Gifty Larsen M.D. [address] [place] [phone] 12/12/2024 10:30 AM CDT Clinical Support - [facility] Department of Otorhinolaryngology in [place], [place] [address] [place] [address] Pradeep Dasilva Ana 12/12/2024 11:00 AM CDT Clinical Support Medical Photography in [place], [place] [address] [place] [phone] Gifty Larsen M.D. [address] [place] [phone] 12/12/2024 1:00 PM CDT Office Visit Department of Ophthalmology in [place], [place] [address] [place] [phone] Gifty Larsen M.D. [address] [place] [phone] 12/12/2024 1:30 PM CDT Office Visit Division of Endocrinology in [address] [address] Hakeem Hearn M.D. [address] [place] [phone] 12/12/2024 3:00 PM CDT Appointment Department of Radiology, [facility], in [place], [place] [address] [place] [phone] Gifty Larsen M.D. [address] [place] [phone] Health Maintenance Due Date Last Done Comments Visit: Medicare Annual Wellness 1940 DTaP,Tdap,and Td Vaccines (1 - Tdap) 1957 Pneumococcal vaccine (50+ years) (1 of 1 - PCV) 02/29/1988 Zoster Vaccines (1 of 2) 02/29/1988 RSV vaccine - (32-36 weeks) or 60+ years (1 - 1-dose 75+ series) 2013 COVID-19 Vaccine (2 - season) 2024 11/18/2023 Influenza Vaccine (#1) 2024 , 11/30/2017, 11/19/2016, Additional history exists Visit: Annual, age 65+ (or Medicare and <65) 08/18/2025 08/18/2024 Depression Screening (Annual PHQ-2) Completed 06/09/2024, 06/09/2024 Fall Risk Screen (Annual) Completed 06/09/2024 IPV Vaccines Aged Out No longer eligi ble based on patient's age to complete this topic Procedures Procedure Name Priority Date/Time Associated Diagnosis Comments DX LUMBAR SPINE 2-3 VIEWS RAD - Routine (most inpatients and all outpatients) 08/22/2024 3:19 PM CDT Pain Low Back Unspecified from Last 3 Months Results * DX Lumbar Spine 2-3 Views (08/22/2024 3:19 PM CDT) Anatomical Region Laterality Modality Lumbar Spine, Musculoskeleta l RST LOS, Neuroradiology ARZ LOS, Muskuloskeletal FLA LOS N/A Digital Radiography Impressions 08/22/2024 4:32 PM CDT Moderate right and mild left sacroiliac degeneration. Advanced mid to lower lumbar facet arthropathy, greatest at L4-5. Moderate to advanced mid to lower lumbar disc degeneration with narrowing of the disc spaces most notably at L4-5 and L5-S1. Negative for acute lumbar spine fracture. Lumbar vertebral bodies are normal in stature. Mild left lateral listhesis of L4-5 and mild right lateral listhesis of L2-3 and L3-4. Scattered atherosclerotic vascular calcifications. Narrative 08/22/2024 4:32 PM CDT EXAM: DX LUMBAR SPINE 2-3 VIEWS Procedure Note Eddie Benavidez M.D. - 08/22/2024 EXAM: DX LUMBAR SPINE 2-3 VIEWS IMPRESSION: Moderate right and mild left sacroiliac degeneration. Advanced mid tolower lumbar facet arthropathy, greatest at L4-5. Moderate to advanced midto lower lumbar disc degeneration with narrowing of the disc spaces mostnotably at L4-5 and L5-S1. Negative for acute lumbar spine fracture. Lumbar vertebral bodiesare normal in stature. Mild left lateral listhesis of L4-5 and mild rightlateral listhesis of L2-3 and L3-4. Scattered atherosclerotic vascularcalcifications. Halie Cope M.D. IMG DIAGNOSTIC IMAGING [facility] Final Result from Last 3 Months Insurance MEDICARE [facility] Care Teams Burning Supervisor Relationship Specialty Start Date End Date Halie Cope M.D. [address] [place] [address] KIEL Morales [phone] PCP - General Family Medicine 10/24/24
--- OUTSIDE RECORDS SUMMARY | 2024-10-26 18:22 | XMS_ITS | Patient Health Record ---
Author Organization [facility] Address [address] [address] Care Team Providers Care Character Actress Name Role Phone Pieter Medrano Unavailable [phone] MannyKatina Unavailable Unavailable Allergies No Known Allergies Reason [...] Status Risk Notes Problem Essential hypertensi on (47654726) Essential hypertension (I10) Active confirmed Problem Vitamin B12 deficien cy (non anemic) (01705747) B12 deficiency (E53.8) Active confirmed Problem Degeneration of cervical intervertebral disc (03535627) Degenerative cervical disc (M50.30) Active confirmed Problem Thyroid disease (40791790) Thyroid disease (E07.9) Active confirmed Problem Recurrent major depression (52951498) Recurrent major depressive disorder, remission status unspecified (F33.9) Active confirmed Problem hypercholesterolemia (disorder) (39397718) Hypercholesteremia (E78.00) Active confirmed Problem Osteoarthritis of multiple joints (412110810) 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) Active confirmed Problem Speech problem (finding) (697336618) Speech complaints (R47.9) Active confirmed Plan Of Treatment Pending Test Test Name Order Date Physical Therapy Evaluate and Treat 08/2020 HOMOCYSTEINE 01/01/2020 Insurance Providers Payer Name Payer Address Payer Phone Subscriber Number Group Number Insured Name Patient Relationship to Insured Coverage Start Date Coverage End Date Medicare Part B [address] [address] [place] [address] [id number] LUZMARIA FALLON Self - patient is the insured [place] [employer] - PPC and Trad PPS Only [address] [place] [address] [id number] LUZMARIA FALLON Self - patient is the insured Medical (General) History Medical History History ICD Code Arthritis Depression High Blood Pressure Memory Loss Surgical History Surgery Date(Month/Year) Shoulder Replace 2014 3 Rotator Cuffs 5428-9525 Bladder Repair 2013 Back (Lower Spine) 2009 Knee Replacement 2007 Knee Replacement 2009 Tonsils 1950
--- OUTSIDE RECORDS SUMMARY | 2024-10-26 18:23 | XMS_ITS | Patient Health Record ---
Author Organization [facility] Address [address] [place] [address] Care Team Providers Care Machine Design Checker Name Role Phone ISATURAYNA LINARES Primary Care Provider UnavailROSE Carlson Unavailable [phone] Migration, Provider Unavailable Unavailable Allergies No Known [...] review and pick correct strength-formulati on from [employer] 360an options. 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 Problem Hypothyroidism (15728617) Other specified hypothyroidism (E03.8) Active confirmed Encounters Encounter Location Date Provider Diagnosis [facility] [place] [address] [place] [address] 04/22/2024 Provider Migration Plan Of Treatment Pending Test Test Name Order Date TSH, 3RD GENERATION 06/17/2023 Insurance Providers Payer Name Payer Address Payer Phone Subscriber Number Group Number Insured Name Patient Relationship to Insured Coverage Start Date Coverage End Date MEDICARE PART B [address] [address] [place], [place] [id number] Litzy Perez Self - patient is the insured [facility] [address] [place], [place] [id number] Litzy Perez Self - patient is the insured Medical (General) History Medical History History ICD Code ashtma hld hypothryoid htn Surgical History Surgery Date(Month/Year) t a bladder prolacpse rt shluder lami bilat tka
--- OUTSIDE RECORDS SUMMARY | 2024-10-26 18:23 | XMS_ITS | Patient Health Record ---
Author Organization [facility] Address [address] [address] Care Team Providers Care Sustainability Officer Name Role Phone Antoine PRICE, [facility] Primary Care Provider Unavail able Isabella Damon [phone] Allergies No Known Allergies Reason For Referral No Information Medications Medication SIG (Take, Route, Frequency, Duration) Notes Start Date End Date Status Multivitamin - Tablet 1 tablet Orally On ce a day; Duration: 30 day(s) Active amLODIPine Besylate 2.5 MG Tablet 1 tablet Orally twice a day Active Andrei-Mag Active CeleBREX 200 MG Capsule 1 capsule with f ood Orally Once a day; Duration: 30 day(s) Active Culturelle - Capsule as directed Orally Active Vascepa 1 GM Capsule 2 capsules with eneida ls Orally Twice a day; Duration: 30 day(s) Active Lipitor 40 MG Tablet 1 tablet Orally Onc e a day; Duration: 90 days Active FLUoxetine HCl 40 MG Capsule 1 capsule Orally Once a day; Duration: 30 day(s) Active Vitamin D3 50 MCG (2000 UT) Capsule 1 capsule Orally Once a day; Duration: 30 day(s) Active Vitamin B12 1000 MCG Tablet Extended Release 1 tablet Orally Once a day; Duration: 30 day(s) Active Metoprolol Succinate ER 50 MG Tablet Extended Release 24 Hour 1 tablet Orally Once a day; Duration: 30 day(s) Active Aspirin 81 MG Tablet Chewable 1 tablet Orally twice a week Active Minivelle 0.0375 MG/24HR Patch Twice Weekly 1 patch to skin Transdermal Two times a Week; Duration: 30 day(s) Active Biotin 5000 MCG Tablet 1 tablet Orally O nce a day; Duration: 30 day(s) Active Breo Ellipta 200-25 MCG/ACT Aerosol Powder Breath Activated 1 puff Inhalation Once a day Active Albuterol Sulfate HFA 108 (90 Base) MCG/ACT Aerosol Solution 1 puff as needed Inhalation every 4 hrs as needed Active Social History Tobacco Use: Social History Observation Description Date Details (start date - stop date) Former Smoker NA - NA Social History Tobacco Use: Social Info Question Answer Notes Tobacco Use/Smoking Are you a former smoker Additional Details Category Social Info Options Details Drugs/Alcohol: Do you drink alcohol? 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) Active confirmed Problem Mixed hyperlipidemia (456140656) Hyperlipidemia, mixed (E78.2) Active confirmed Problem Atherosclerosis of coronary artery without angina pectoris (337468730451448) Atherosclerosis of [place] coronary artery of [place] heart without angina pectoris (I25.10) Active confirmed Problem Occlusion and stenosis of multiple and bilateral cerebral arteries (243648157) Carotid stenosis, bilateral (I65.23) Active confirmed Problem Venous insufficiency of leg (disorder) (771338994) Venous insufficiency (I87.2) Active confirmed Problem Angina (538304354) Atheroscleros is of [place] coronary artery of [place] heart with angina pectoris (I25.119) Active confirmed Plan Of Treatment No Information Insurance Providers Payer Name Payer Address Payer Phone Subscriber Number Group Number Insured Name Patient Relationship to Insured Coverage Start Date Coverage End Date [place] Part B [address] [address] [place] [address] [id number] Ana Litzy Self - patient is the insured [facility] Out of State [address] [place] [address] [id number] Litzy Seay Self - patient is the insured Medical (General) History Medical History History ICD Code high blood pressure asthma
[2024-10-26 18:24] VITALS: BP 155/72; PULSE 65; RESP 16; TEMP 36.6; O2SAT 95; BMI 20.4
--- OUTSIDE RECORDS SUMMARY | 2024-10-26 18:24 | XMS_ITS | Clinical Summary ---
Author Organization [facility] [email or web address] [facility] Address [address] [place] [address] Care Team Providers Care Patternmaker Wood Name Role Phone Lucy Szymanski MD Primary Care Provider + Allergies No known active allergies Encounters Date Type Department Care Team Description 10/18/2024 2:30 PM CDT Office Visit [facility] [address] [place] [address] Rojas Funk AuD Hearing Aid (Consultation) 10/18/2024 10:30 AM CDT Office Visit [facility] [address] [place] [address] Rojas Funk AuD Hearing Problem 10/18/2024 Travel from Last 3 Months Social History Tobacco Use Types Packs/Day Years Used Date Smoking Tobacco: Never Assessed Comments Unknown Sex and Gender Information Value Date Recorded Sex Assigned at Not on file Legal Sex Female 10:46 AM CDT Gender Identity Not on file Sexual Orientation Not on file Plan of Treatment Health Maintenance Due Date Last Done Comments Tetanus booster 1949 Depression screening for age 12+ 1950 BMI (ht and wt on same day) for age 18+ 02/29/1956 Pneumococcal series for age 50+ (1 of 1 - PCV) 02/29/1988 Zoster (shingles) series for age 50+ (1 of 2) 02/29/1988 DEXA/DXA scan for age 65+ 2003 Medicare Wellness for age 65+ 2003 RSV vaccine for adults or (1 - 1-dose 75+ series) 2013 COVID-19 vaccine series ( season) 2024 11/18/2023 Influenza Vaccine (#1) 2024 Hepatitis B series for 19+ Aged Out N o longer eligible based on patient's age to complete this topic Insurance [facility] NON-CA-ITS MEDICARE [place] ONLY Care Teams Patternmaker Wood Relationship Specialty Start Date End Date Lucy Szymanski MD [address] [place] [address] PCP - General Family Practice 12/23/23
--- OUTSIDE RECORDS SUMMARY | 2024-10-26 18:24 | XMS_ITS | Encounter Summary ---
Author Organization [facility] Address [address] [place] [address] Care Team Providers Care Quality Rep Name Role Phone Elsewhere, Pcp Primary Care Provider Unavailabl e Reason for Visit * Reason Comments Med Refill Encounter Details Date Type Department Care Team (Late st Contact Info) Description 09/15/2024 Refill Department of Family Medicine, [facility], in [place], [place] [address] [place] [address] Halie Cope M.D. [address] [place] [address] Med Refill Social History Tobacco Use Types Packs/Day Years Used Date Smoking Tobacco: Former Cigarettes 0.3 40 0 03/01/1955 - 03/01/1995 Smokeless Tobacco: Never Alcohol Use Standard Drinks/Week Comments Yes 2 (1 standard drink = 0.6 oz pure alcohol) I am just a social drinker and never drank too much as my of 65 years was a heavy drinker. [facility] Utilities Answer Date Recorded In the past 12 months has e [email or web address], gas, oil, or water [employer] threatened to shut off services in your [...] your living situation today? I have a 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 [address] [place] [address] 12/11/2024 10:15 AM CDT Clinical Communication Virtual Review in [place], [place] [address] [place] [phone] 12/12/2024 7:00 AM CDT Appointment Department of Laboratory Medicine and Pathology, [facility] in [place], [place] [address] [place] [phone] Gifty Larsen M.D. [address] [place] [phone] 12/12/2024 8:00 AM CDT Comprehensive Visit Division of Endocrinology in [place], [place] [address] [place] [phone] aHkeem Hearn M.D. [address] [place] [phone] 12/12/2024 9:30 AM CDT Comprehensive Visit Department of Ophthalmology in [place], [place] [address] [place] [phone] Gifty Larsen M.D. [address] [place] [phone] 12/12/2024 10:30 AM CDT Clinical Support - [facility] Department of Otorhinolaryngology in [place], [place] [address] [place] [address] Pradeep Dasilva Ana 12/12/2024 11:00 AM CDT Clinical Support Medical Photography in [place], [place] [address] [place] [address] Gifty Larsen M.D. [address] [place] [phone] 12/12/2024 1:00 PM CDT Office Visit Department of Ophthalmology in [place], [place] [address] [place] [address] Gifty Larsen M.D. [address] [place] [phone] 12/12/2024 1:30 PM CDT Office Visit Division of Endocrinology in [place], [place] [address] [place] [phone] Hakeem Hearn M.D. [address] [place] [phone] 12/12/2024 3:00 PM CDT Appointment Department of Radiology, [facility], in [place], [place] [address] [place] [address] Gifty Larsen M.D. [address] [place] [phone] documented as of this encounter Visit Diagnoses Not on filedocumented in this encounter Care Teams Quality Rep Relationship Specialty Start Date End Date Elsewhere, Pcp PCP - General Internal Medicine 06/09/24 10/23/24 documented as of this encounter
--- OUTSIDE RECORDS SUMMARY | 2024-10-26 18:24 | XMS_ITS | Patient Health Record ---
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
--- OUTSIDE RECORDS SUMMARY | 2024-10-26 18:24 | XMS_ITS | Encounter Summary ---
Author Organization [facility] Address [address] [place] [address] Care Team Providers Care Dietary Aide Name Role Phone Elsewhere, Pcp Primary Care Provider Unavailabl e Reason for Referral * Outpatient (Routine) - Authorized Specialty Diagnoses / Procedures Referred By Scar gold Referred To Contact Audiology Diagnoses Other Specified Hearing Loss Bilateral Halie Cope M.D. [address] [place] [address] Phone: tel: fax: Referral ID Status Reason Start Date Expiration Date V isits Requested Visits Authorized [id number] Authorized 10/23/2024 04/24/2026 1 1 Encounter Details Date Type Department Care Team (Late st Contact Info) Description 10/16/2024 Clinical Communication Department of Family Medicine, [facility], in [place], [place] [address] [place] [address] Halie Cope M.D. [address] [place] [address] Social History Tobacco Use Types Packs/Day Years Used Date Smoking Tobacco: Former Cigarettes 0.3 40 0 03/01/1955 - 03/01/1995 Smokeless Tobacco: Never Alcohol Use Standard Drinks/Week Comments Yes 2 (1 standard drink = 0.6 oz pure alcohol) I am just a social drinker and never drank too much as my of 67 years was a heavy drinker. [facility] Utilities Answer Date Recorded In the past 12 months has th e electric, gas, oil, or water [employer] threatened to shut off services in your home? No 08/18/2024 Hunger Vital Sign Answer Date Recorded Within the past 12 months, y ou worried that your food would run out before you got the money to buy more. Never true 08/19/19 Within the past 12 months, t he [...] your living situation today? I have a [facility] place to live 08/18/2024 Comments No Sex and Gender Information Value Date Recorded Sex Assigned at Female 08/18/2024 12:20 PM CDT Legal Sex Female 1:07 PM [employer]EE[employer] Gender Identity Female 08/18/2024 12:20 PM CDT Sexual Orientation Straight 08/18/2024 12 :20 PM CDT documented as of this encounter Miscellaneous Notes * Telephone Encounter - Rosalba Quiroz, L.P.N. - 10/23/2024 11:23 AM CDT Faxed referral to [facility] documented in this encounter Plan of Treatment Upcoming Encounters Date Type Department Care Team (Latest Contact Info) Description 11/02/2024 3:00 PM CDT Office Visit Department of Family Medicine, [facility], in [place], [place] [address] [place] [phone] Halie Cope M.D. [address] [place] [phone] 12/11/2024 10:15 AM CDT Clinical Communication Virtual Review in [address] [phone] 12/12/2024 7:00 AM CDT Appointment Department of Laboratory Medicine and Pathology, [facility], in [place], [place] [address] [place] [address] Gifty Larsen M.D. [address] [place] [phone] 12/12/2024 8:00 AM CDT Comprehensive Visit Division of Endocrinology in [place], [place] [address] [place] [address] Hakeem Hearn M.D. [address] [place] [phone] 12/12/2024 9:30 AM CDT Comprehensive Visit Department of Ophthalmology in [place], [place] [address] [place] [address] Gifty Larsen M.D. [address] [place] [phone] 12/12/2024 10:30 AM CDT Clinical Support - [facility] Department of Otorhinolaryngology in [place], [place] [address] [place] [address] Pradeep Dasilva 12/12/2024 11:00 AM CDT Clinical Support Medical Photography in [place], [place] [address] [place] [address] Gifty Larsen M.D. [address] [place] [phone] 12/12/2024 1:00 PM CDT Office Visit Department of Ophthalmology in [place], [place] [address] [place] [phone] Gifty Larsen M.D. [address] [place] [phone] 12/12/2024 1:30 PM CDT Office Visit Division of Endocrinology in [place], [place] [address] [place] [address] Hakeem Hearn M.D. [address] [place] [address] 12/12/2024 3:00 PM CDT Appointment Department of Radiology, [facility], in [place], [place] [address] [place] [address] Gifty Larsen M.D. [address] [place] [address] Scheduled Orders Name Type Priority Associated Diagnoses Orde r Schedule Audiology evaluation Audiology Routine Other Specified Hearing Loss Bilateral Expected: 10/17/2024 (Approximate), Expires: 01/17/2026 documented as of this encounter Visit Diagnoses Diagnosis Other Specified Hearing Loss Bilateral- Primary documented in this encounter Care Teams Dietary Aide Relationship Specialty Start Date End Date Elsewhere, Pcp PCP - General Internal Medicine 06/09/24 10/23/24 documented as of this encounter
--- NOTE | 2024-10-26 19:21 | ED.GENADULT ---
HPI - General Adult General Date Seen: 10/26/24 Chief complaint: Laceration/Wound Stated complaint: Laceration on both legs Time Seen by Provider: 10/26/24 18:29 History of Present Illness HPI narrative: 84-year-old female who is generally healthy safe for Graves disease and prediabetes and osteopenia. She is up-to-date on her tetanus. 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 They live at home their own place. Her is with her here in [facility] ER [facility]. She was accidentally injured this evening just prior to arrival when a cabinet and a piece of furniture fell over and struck her in the legs. She she offered a v-shaped skin tear to the skin on the lateral side of her left distal thigh just a few cm proximal to the knee. She was easily able to lay that skin flap. She suffered a larger U shaped skin tear on her anterior right rosenbaum. She was not able to fully bring the skin down to cover the wound. Bleeding was controlled prior to arrival. Related Data Home Medications ?Medication ?Instructions ?Recorded ?Confirmed aspirin 81 mg tablet,delayed 81 mg PO .TIW 11/18/23 08/18/24 release (Adult Aspirin Regimen) Previous Rx's ?Medication ?Instructions ?Recorded albuterol sulfate 90 mcg/actuation 1 inh inhalation Q4H PRN shortness 01/18/24 aerosol inhaler (Ventolin HFA) of breath or wheezing #6.7 grams amlodipine 2.5 mg tablet 2.5 mg PO BID #180 tabs 01/18/24 atorvastatin 40 mg tablet 40 mg PO QDAY #90 tabs 01/18/24 fluoxetine 40 mg capsule 40 mg PO QAM #90 caps 01/18/24 metoprolol succinate 50 mg 50 mg PO QDAY #90 tabs 01/18/24 tablet,extended release 24 hr trazodone 50 mg tablet 25 mg (1/2 x 50 mg) PO QHS PRN 01/18/24 insomnia #45 tabs benzonatate 200 mg capsule 200 mg PO BID PRN cough #20 caps 05/05/24 estradiol 0.0375 mg/24 hr 1 patch transdermal 2XW #24 ea 05/26/24 semiweekly transdermal patch (Minivelle) celecoxib 200 mg capsule (Celebrex) 200 mg PO QDAY PRN pain #45 caps 07/18/24 prednisone 20 mg tablet 20 mg PO BID #10 tabs 08/18/24 levothyroxine 25 mcg tablet 25 mcg PO QAM #90 tabs 09/04/24 (Synthroid) fluticasone furoate 200 1 inh inhalation QDAY #60 ea 10/10/24 mcg-vilanterol 25 mcg/dose inhalation powder (Breo Ellipta) icosapent ethyl 1 gram capsule 1 g PO BID #180 caps 10/13/24 (Vascepa) Allergies Allergy/AdvReac Type Severity Reaction Status Date / Time No Known Drug Allergies Allergy Verified 08/18/24 16:25 [facility] Medical History Extremely dense tissue of both breasts on mammography ?R92.343 - Mammographic extreme density, bilateral breasts (ICD-10) On hormone replacement therapy ?Z79.890 - Hormone replacement therapy (ICD-10) Coronary artery disease (2021) ?I25.10 - Atherosclerotic heart disease of [place] coronary artery without angina pectoris (ICD-10) Basal cell carcinoma of face (~1989) ?C44.310 - Basal cell carcinoma of skin of unspecified parts of face (ICD-10) 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 ?I70.213 - Atherosclerosis of [place] arteries of extremities with intermittent claudication, bilateral legs (ICD-10) History of echocardiogram ?Z92.89 - Personal history of other medical treatment (ICD-10) Hearing loss ?H91.90 - Unspecified hearing loss, unspecified ear (ICD-10) Osteopenia ?M85.80 - Other specified disorders of bone density and structure, unspecified site (ICD-10) Elevated coronary artery calcium score ?R93.1 - Abnormal findings on diagnostic imaging of heart and coronary circulation (ICD-10) Insomnia ?G47.00 - Insomnia, unspecified (ICD-10) Atherosclerotic heart disease of [place] coronary artery without angina pectoris ?I25.10 - Atherosclerotic heart disease of [place] coronary artery without angina pectoris (ICD-10) Exophthalmos of left eye ?H05.20 - Unspecified exophthalmos (ICD-10) Hypothyroidism (1997) ?E03.9 - Hypothyroidism, unspecified (ICD-10) Depression ?F32.A - Depression, unspecified (ICD-10) Asthma ?J45.909 - Unspecified asthma, uncomplicated (ICD-10) Generalized osteoarthritis ?M15.9 - Polyosteoarthritis, unspecified (ICD-10) Hyperlipidemia ?E78.5 - Hyperlipidemia, unspecified (ICD-10) Essential hypertension ?I10 - Essential (primary) hypertension (ICD-10) Surgical History History of vaginal delivery History of cataract surgery ?Z98.49 - Cataract extraction status, unspecified eye (ICD-10) History of tonsillectomy ?Z90.89 - Acquired absence of other organs (ICD-10) History of cardiac catheterization (2023) ?Z98.890 - Other specified postprocedural states (ICD-10) History of sacrocolpopexy (2012) ?Z98.890 - Other specified postprocedural states (ICD-10) History of hysterectomy (1985) ?Z90.710 - Acquired absence of both cervix and uterus (ICD-10) History of lumbar laminectomy (2010) ?Z98.890 - Other specified postprocedural states (ICD-10) History of total knee replacement (TKR) (2012) ?Z96.659 - Presence of unspecified artificial knee joint (ICD-10) History of reverse total replacement of shoulder joint (2015) ?Z96.619 - Presence of unspecified artificial shoulder joint (ICD-10) Family History Father Parkinson's disease Maternal Grandfather Diabetes Brother Prostate cancer Schizophrenia Suicide Brother Addiction Colon cancer Social History Narrative: , 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 Active. Non-toxic appearing. HENT: Head: Atraumatic. No signs of injury. Nose: No nasal discharge. Mouth/Throat: Mucous membranes are moist. Pharynx is normal. Tonsils symmetric. Uvula midline. Airway patent. Eyes: Conjunctivae normal and EOM are normal. Pupils are equal, round, and reactive to light. Right eye exhibits no discharge. Left eye exhibits no discharge. No icterus. Neck: Normal range of motion. Neck supple. No adenopathy. No stridor. Cardiovascular: Normal rate and regular rhythm. No murmur heard. No murmurs, rubs, or gallops. Brisk capillary refill Pulmonary/Chest: Effort normal. No stridor. No respiratory distress. No wheezes.No rhonchi. No rales. No retractions. Abdominal: Soft. Bowel sounds are normal. No distension. No mass. There is no tenderness. There is no rebound and no guarding. Musculoskeletal: Normal range of motion. No edema. No tenderness. No deformity. Right lower extremity: Hip, thigh, are normal. On her rosenbaum there is about a 12 cm U shaped skin tear. The distal and the you is gaping more than a cm because the skin edge of the superior edge of the skin tear is rolled under. Using forceps and sterile equipment I was able to bring this skin out to length. The wound does not penetrate through the dermis. No active bleeding. No foreign body. Remainder of rosenbaum are is normal. Calf is normal. Ankle and foot are normal. Left lower extremity: Hip is normal. Femur is normal. Quad and hamstring are normal. She has a 5 cm v-shaped skin tear on the lateral side of the thigh with the skin edges well apposed. No active bleeding. Does not penetrate through the dermis. No foreign body. Knee, rosenbaum, calf, ankle, foot are normal. Neurological: Alert. Normal strength. No cranial nerve deficit or sensory deficit. Coordination normal. GCS eye subscore is 4. GCS verbal subscore is 5. GCS motor subscore is 6. Skin: Skin is warm. No rash noted. Const: Vital Signs, click to edit/add: Vital Signs - 24 hr 10/26/24 18:24 Temperature 97.9 F Pulse Rate [Pulse Oximeter] 65 Respiratory Rate 16 Blood Pressure [Ri ght Upper Arm] 155/72 H Pulse Oximetry 95 Oxygen Delivery Me thod Room Air Course Vital Signs Vital signs: Initial Vital Signs Temperature 97.9 F 10/26/24 18:24 Temperature Source Temporal Artery Scan 10/26/24 18:24 Pulse Rate 65 10/26/24 18:24 Respiratory Rate 16 10/26/24 18:24 Blood Pressure 155/72 H 10/26/24 18:24 Blood Pressure Mean 99 10/26/24 18:24 Blood Pressure Position Sitting 10/26/24 18:24 Pulse Oximetry 95 10/26/24 18:24 Oxygen Delivery Method Room Air 10/26/24 18:24 Vital Signs Temperature 97.9 F 10/26/24 18:24 Pulse Rate 65 10/26/24 18:24 Respiratory Rate 16 10/26/24 18:24 Blood Pressure 155/72 H 10/26/24 18:24 Pulse Oximetry 95 10/26/24 18:24 Oxygen Delivery Method Room Air 10/26/24 18:24 Temperature 97.9 F 10/26/24 18:24 Pulse Rate 65 10/26/24 18:24 Respiratory Rate 16 10/26/24 18:24 Blood Pressure 155/72 H 10/26/24 18:24 Pulse Oximetry 95 10/26/24 18:24 Oxygen Delivery Method Room Air 10/26/24 18:24 Medical Decision Making MDM Narrative Medical decision making narrative: Findings and exam are consistent with an 2 skin tears on her lower extremities. She has a fairly large U shaped skin tear that did have some gaping and on close covered subcutaneous tissue on her right anterior rosenbaum. She had a smaller v-shaped skin tear on her left lateral thigh that was already well apposed. The wounds were was repaired as noted above. There is no evidence at this time to suggest any associated fracture or foreign body. There is no evidence to suggest tendon or arterial injury and patient is neurologically in tact. Discussed wound care and how to keep the wounds clean and dry. Instructions to seek urgent reevaluation and signs of infection (including but not limited to increasing pain, redness, swelling, fevers, and drainage) were reviewed. Tetanus is up-to-date. This is a clean and non-contaminated wound in which prophylactic antibiotics are not indicated. An understanding of the discharge instructions and need for follow up were verbally confirmed. Discharge Plan Discharge Clinical Impression: Skin tear Patient Disposition: Home, Self-Care Condition: Stable Instructions: Skin Tear (ED) Additional Instructions: As we discussed, please keep the Steri-Strips and Dermabond clean and dry. Try to keep them covered with a dressing underneath her clothes with an get rubbed. Try to keep to glue and Steri-Strips in place for at least 7-10 days while the wounds underneath her healing. Watch for signs of infection, such as redness, swelling, fever, or pus draining from your wounds. If you have any concerns, please come back to the ER or recheck with your regular doctor right away. Prescriptions: No Action aspirin [Adult Aspirin Regimen] 81 mg tablet,delayed release (DR/EC) 81 mg PO .TIW amlodipine 2.5 mg tablet 2.5 mg PO BID Qty: 180 1RF atorvastatin 40 mg tablet 40 mg PO QDAY Qty: 90 1RF fluoxetine 40 mg capsule 40 mg PO QAM Qty: 90 1RF metoprolol succinate 50 mg tablet extended release 24 hr 50 mg PO QDAY Qty: 90 1RF trazodone 50 mg tablet 25 mg PO QHS PRN (Reason: insomnia) Qty: 45 3RF albuterol sulfate [Ventolin HFA] 90 mcg/actuation HFA aerosol inhaler 1 inh inhalation Q4H PRN (Reason: shortness of breath or wheezing) Qty: 6.7 3RF benzonatate 200 mg capsule 200 mg PO BID PRN (Reason: cough) Qty: 20 0RF estradiol [Minivelle] 0.0375 mg/24 hr patch semiweekly 1 patch transdermal 2XW Qty: 24 3RF Rx Instructions: apply 1 patch for 3 days alternating with 1 patch for 4 days each week for 3 wks per 4-wk cycle prednisone 20 mg tablet 20 mg PO BID Qty: 10 0RF Rx Instructions: Take with food. celecoxib [Celebrex] 200 mg capsule 200 mg PO QDAY PRN (Reason: pain) Qty: 45 0RF levothyroxine [Synthroid] 25 mcg tablet 25 mcg PO QAM Qty: 90 0RF fluticasone furoate-vilanterol [Breo Ellipta] 200-25 mcg/dose blister with device 1 inh inhalation QDAY Qty: 60 0RF icosapent ethyl [Vascepa] 1 gram capsule 1 g PO BID Qty: 180 0RF Follow Up/Referrals: Lucy Szymanski MD [Primary Care Provider, [facility]] Stand Alone Forms: MyHealth Info Instructions Procedures Laceration Right rosenbaum skin tear: Verification/time out: correct patient and correct procedure Site: lower extremity Size (cm): 12 Description: linear (Linear U shaped) Depth: simple, single layer Technique: other (Skin edges approximated with forceps and then held in place using a combination of Steri-Strips and Dermabond.) Left lateral thigh skin tear: Verification/time out: correct patient and correct procedure Site: lower extremity (V-shaped 5 cm left lateral thigh skin tear) Description: flap Depth: simple, single layer Size (cm): other (Wound was closed using a combination of Steri-Strips and Dermabond.)
== END 2024-10-26 20:41 | disposition home or self-care (01) ==
LOC: ED 19:37
PROVIDERS: Emergency Provider Emergency Medicine; PCP Family Medicine
DX: S81.811A Laceration without foreign body, right lower leg, initial encounter (principal); W20.8XXA Other cause of strike by thrown, projected or falling object, initial encounter; Y92.000 Kitchen of unspecified non-institutional (private) residence as the place of occurrence of the external cause
CPT/HCPCS: 12005; 99282

== ENCOUNTER 2024-11-20 12:46 | Outpatient (CLI) | payer MEDICARE, BC, SELFPAY | END 2024-11-20 12:47 | disposition home or self-care (01) | PROVIDERS: Referring Provider Physician Assistant Surgical; Visit Provider Physician Assistant Surgical | DX: S81.811A Laceration without foreign body, right lower leg, initial encounter (principal); W20.8XXA Other cause of strike by thrown, projected or falling object, initial encounter | CPT/HCPCS: 11042; G0463 ==

== ENCOUNTER 2024-12-05 11:14 | Outpatient (CLI) | payer MEDICARE, BC, SELFPAY | END 2024-12-05 11:15 | disposition home or self-care (01) | LOC: WOUND 11:15 | PROVIDERS: Visit Provider Nurse Practitioner Family | DX: S51.811D Laceration without foreign body of right forearm, subsequent encounter (principal); W20.8XXD Other cause of strike by thrown, projected or falling object, subsequent encounter | CPT/HCPCS: 11042 ==

== ENCOUNTER 2024-12-13 14:06 | Outpatient (CLI) | payer MEDICARE, BC, SELFPAY | END 2024-12-13 14:07 | disposition home or self-care (01) | LOC: WOUND 14:06 | PROVIDERS: Visit Provider Surgery | DX: S51.811D Laceration without foreign body of right forearm, subsequent encounter (principal); W20.8XXD Other cause of strike by thrown, projected or falling object, subsequent encounter | CPT/HCPCS: G0463 ==

== ENCOUNTER 2024-12-20 14:05 | Outpatient (CLI) | payer MEDICARE, BC, SELFPAY | END 2024-12-20 14:06 | disposition home or self-care (01) | LOC: WOUND 14:05 | PROVIDERS: Visit Provider Surgery | DX: S51.811D Laceration without foreign body of right forearm, subsequent encounter (principal); W20.8XXD Other cause of strike by thrown, projected or falling object, subsequent encounter | CPT/HCPCS: G0463 ==

== ENCOUNTER 2024-12-21 08:46 | Outpatient (CLI) | payer MEDICARE, BC, SELFPAY | END 2024-12-21 08:47 | disposition home or self-care (01) | LOC: NFLDREF 12-23 17:41 | PROVIDERS: Visit Provider Internal Medicine Cardiovascular Disease | DX: I25.10 Atherosclerotic heart disease of native coronary artery without angina pectoris (principal) | CPT/HCPCS: 80061 ==